=== PATIENT | female | born 1995 ===

== ENCOUNTER 2020-05-13 15:18 | Emergency (ER) | payer OTHER, SELFPAY ==
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
[2020-05-13 15:38] VITALS: BP 115/70; PULSE 93; RESP 16; TEMP 36.9; O2SAT 98; BMI 27.4
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
== END 2020-05-13 17:40 | disposition home or self-care (01) ==
PROVIDERS: Emergency Provider Emergency Medicine; PCP Internal Medicine
DX: S00.03XA Contusion of scalp, initial encounter (principal); S80.212A Abrasion, left knee, initial encounter; S60.511A Abrasion of right hand, initial encounter; V28.1XXA Motorcycle passenger injured in noncollision transport accident in nontraffic accident, initial encounter; Y93.9 Activity, unspecified; Y92.414 Local residential or business street as the place of occurrence of the external cause; Y99.9 Unspecified external cause status
CPT/HCPCS: 70450; 73110; 73560; 99283; 99284

== ENCOUNTER 2020-06-20 13:05 | Outpatient (REF) | payer OTHER, SELFPAY | END 2020-06-20 13:06 | disposition home or self-care (01) | LOC: HO.HMGCLDS 13:05 | PROVIDERS: PCP Internal Medicine; Visit Provider Internal Medicine | DX: Z20.828 Contact with and (suspected) exposure to other viral communicable diseases (principal) | CPT/HCPCS: C9803; U0003 ==

== ENCOUNTER 2021-07-16 12:24 | Emergency (ER) | payer OTHER, SELFPAY ==
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
--- NOTE | ~2021-07-16 | US_ITS ---
EXAMINATION: US PELVIS CLINICAL INFORMATION: Status post 07.13.2021 with abdominal pain. Question of retained products of conception. COMPARISON: 03/03/2016 TECHNIQUE: Ultrasound of the pelvis is performed using both transabdominal and transvaginal transducers along with Doppler. Spectral analysis performed. FINDINGS: Uterus: The uterus is anteverted and measures 8.8 x 3.8 x 5.8 cm. There is echogenic debris or eccentric thickening along the right fundal endometrium measuring up to 1.1 cm. Echogenic fluid likely blood present throughout the remainder of the endometrial canal as best shown on the cine images. The uterus is smooth in contour and has normal myometrial echogenicity. No visible fibroid. Adnexa: Both ovaries are visualized. There is normal color flow to the adnexa. There is no ovarian torsion. There is no pelvic ascites or fluid collection. Right ovary measures 3.8 x 1.9 x 1.4 cm. Left ovary measures 2.0 x 1.5 x 2.8 cm. US/US pelvic and transvaginal IMPRESSION: There is eccentric thickening or echogenic debris along the right fundal endometrium, and echogenic fluid throughout the remainder of the endometrial canal likely representing blood products. The former may represent a small amount of retained products of conception. Recommend short interval follow-up ultrasound in one week to document resolution.
[2021-07-16 14:40] VITALS: BP 126/82; PULSE 92; RESP 18; TEMP 36.6; O2SAT 100; BMI 28.3
--- NOTE | 2021-07-16 21:26 | ED.GENADULT ---
HPI - General Adult General Chief complaint: General Medical Stated complaint: ectopic ? Time Seen by Provider: 07/16/21 18:51 Source: patient Mode of arrival: ambulatory Limitations: no limitations History of Present Illness HPI narrative: patient is status post MTP for IUP done 3 days ago patient did not have much bleeding has cramping on the left lower pelvic area advised to go to the hospital for ultrasound to rule out any complication or ectopically as they did not see any fetus although hCG was positive patient denies any vaginal bleeding no nausea no vomiting no fever no Related Data Previous Rx's Medication Instructions Recorded albuterol sulfate 2.5 mg (3 mL) INHALATION Q4-6H PRN 03/27/21 30 Days #75 ml fluticasone propionate 45 2 puff INHALATION BID 30 Days #12 g 03/27/21 mcg-salmeterol 21 mcg/actuation HFA inhaler (Advair HFA) ketoconazole 2 % topical cream 1 appl TOPICAL DAILY 15 Days #30 g 03/27/21 Allergies Allergy/AdvReac Type Severity Reaction Status Date / Time No Known Allergies Allergy Verified 03/27/21 15:42 Review of Systems Review of Systems: Yes all other systems are reviewed and are negative PMF Past Medical History Medical History Asthma Surgical History History of tonsillectomy and adenoidectomy History of wisdom tooth extraction Family History Family History Mother High blood pressure Diabetes Thyroid condition Father No problems noted. Social History Social History Housing: House Alcohol intake: current Alcohol intake frequency: holidays/special occasions only Patient Tobacco Use Status: Never used Tobacco e-Cigarette/Vaping Use: Never Used Second Hand Smoke Exposure: No Advance Directives: No Advance Directives Information Provided: No Patient : No service: No Current occupational status: employed Current occupation: [employer] Physical Exam Vital Signs: Vital Signs: Last Vital Signs Temp 97.8 F 07/16/21 14:40 Pulse 92 07/16/21 14:40 Resp 18 07/16/21 14:40 BP 126/82 07/16/21 14:40 Pulse Ox 100 07/16/21 14:40 BMI result Body Mass Index 28.3 Appearance: Alert. Oriented X3. No acute distress. ENT: Pharynx normal. Oral Mucosa moist CVS: Normal heart rate and rhythm. Pulses normal. Respiratory: No respiratory distress. Equal air entry bilateral Abdomen: Soft, mild tenderness suprapubic and left lower abdomen no rebound tenderness or guarding Bowel sounds are present, no mass palpable, no CVA tenderness Skin: Skin warm and dry. Normal skin color. Normal skin turgor. Extremities: No lower extremity edema. No calf tenderness Neuro: Oriented X 3. Medical Decision Making MDM Narrative Medical decision making narrative: patient ultrasound negative for any fluid collection and adnexal area or pelvis showed product of blood products in the uterus quantitative hCG was done patient advised to follow with tdp displays analyst Lab Data Lab results reviewed: Yes I reviewed the patient's lab results. Labs: Lab Results 07/16/21 Range/Units 21:37 Beta HCG, Quant 84 mIU/mL Discharge Plan Discharge Clinical Impression: in first trimester Patient Disposition: Home, Self-Care Instructions: Miscarriage (ED) Additional Instructions: Check the level of HCG and follow-up with tdp displays analyst as advised Prescriptions: No Action albuterol sulfate 2.5 mg /3 mL (0.083 %) solution for nebulization 2.5 mg inhalation Q4-6H PRN (Reason: shortness of breath or wheezing) 30 Days Qty: 75 RF: 0 Advair HFA 45-21 mcg/actuation HFA aerosol inhaler 2 puff inhalation BID 30 Days Qty: 12 RF: 0 ketoconazole 2 % cream 1 appl topical DAILY 15 Days Qty: 30 RF: 0 Referrals: Vishnu Yost MD [Physician] - 2 days Stand Alone Forms: Work/School Release Interventions: ED Discharge Assessment Last Done: 07/16/21 21:53 Discharge Date/Time: 07/16/21 21:53
[2021-07-16 22:04] LABS: HCG Quantitative 84 mIU/mL
== END 2021-07-16 21:53 | disposition home or self-care (01) ==
PROVIDERS: Emergency Provider Internal Medicine; PCP Internal Medicine
DX: O03.9 Complete or unspecified spontaneous abortion without complication (principal)
CPT/HCPCS: 36415; 76830; 76856; 84702; 93975; 99282; 99284

== ENCOUNTER 2021-08-16 08:55 | Outpatient (REF) | payer OTHER, SELFPAY ==
[2021-08-16 09:31] LABS: Hematocrit 40.1 % (37.0-47.0); Hemoglobin 13.4 g/dl (12.0-16.0); Mean Corpuscular HGB Conc 33.4 g/dl (31.0-35.0); Mean Corpuscular Volume 83.7 fL (80.0-98.0); Mean Platelet Volume 10.1 fL (9.4-12.3); Platelet Count 160 X10*3/uL (160-400); Red Blood Count 4.79 X10*6/uL (4.20-5.50); Red Cell Distribution Width 12.6 % (11.0-16.0); White Blood Count 7.6 X10*3/uL (4.8-10.8)
[2021-08-16 09:50] LABS: Estimated Average Glucose 105 mg/dL; Hemoglobin A1c % 5.3 %
[2021-08-16 09:52] LABS: Alanine Aminotransferase 18 U/L (0-31); Albumin Level 4.3 g/dL (3.5-5.0); Alkaline Phosphatase 61 U/L (39-117); Anion Gap 12 (12-20); Aspartate Amino Transferase 17 U/L (5-31); Bilirubin Total 0.7 mg/dL (0.0-1.0); Blood Urea Nitrogen 13 mg/dL (9-16); Calcium 9.7 mg/dL (8.4-10.2); Carbon Dioxide 24 mmol/L (22-29); Chloride 106 mmol/L (96-108); Estimated Glomerular Filt Rate > 60; Glucose Fasting 108 mg/dL (60-99); Potassium 4.5 mmol/L (3.3-5.1); Sodium 137 mmol/L (135-145)
[2021-08-16 10:16] LABS: TSH reflex Free T4 2.59 uIU/mL (0.32-4.0)
== END 2021-08-16 08:56 | disposition home or self-care (01) ==
LOC: HO.LAB 08:55
PROVIDERS: PCP Physician Assistant; Visit Provider Physician Assistant
DX: Z13.29 Encounter for screening for other suspected endocrine disorder (principal); I10 Essential (primary) hypertension
CPT/HCPCS: 36415; 80053; 83036; 84443; 85027

== ENCOUNTER 2022-03-20 08:09 | Outpatient (REF) | payer OTHER, SELFPAY ==
[2022-03-20 08:43] LABS: Hemoglobin 12.8 g/dl (12.0-16.0); Mean Corpuscular HGB Conc 33.7 g/dl (31.0-35.0); Mean Corpuscular Hemoglobin 28.2 pg (27.0-33.0); Mean Corpuscular Volume 83.7 fL (80.0-98.0); Mean Platelet Volume 10.2 fL (9.4-12.3); Platelet Count 192 X10*3/uL (160-400); Red Blood Count 4.54 X10*6/uL (4.20-5.50); Red Cell Distribution Width 12.7 % (11.0-16.0); White Blood Count 9.9 X10*3/uL (4.8-10.8)
[2022-03-20 09:10] LABS: Iron 106 mcg/dL (30-160); Percent Iron Saturation 23 % (15-50); Total Iron Binding Capacity 469 mcg/dL (228-428); Unsaturated Iron Binding 363 ug/dL
[2022-03-20 09:31] LABS: Ferritin 36 ng/mL (10-122)
[2022-03-20 09:42] LABS: Folate 12.2 ng/mL (> or = 4.0); Vitamin B12 300 pg/mL (200-900)
== END 2022-03-20 08:10 | disposition home or self-care (01) ==
LOC: HO.LAB 08:09
PROVIDERS: PCP Physician Assistant; Visit Provider Physician Assistant
DX: E53.8 Deficiency of other specified B group vitamins (principal); D50.9 Iron deficiency anemia, unspecified
CPT/HCPCS: 36415; 82607; 82728; 82746; 83540; 85027

== ENCOUNTER 2022-04-16 08:58 | Outpatient (REF) | payer OTHER, SELFPAY ==
[2022-04-16 09:10] LABS: MANUAL DIFF FLAG NO
[2022-04-16 09:41] LABS: Basophils Percent Auto 0.7 % (0-2); Eosinophils Absolute Auto 0.1 X10*3/uL (0.0-0.4); Eosinophils Percent Auto 1.2 % (0-4); Hematocrit 37.4 % (37.0-47.0); Hemoglobin 12.6 g/dl (12.0-16.0); Imm Gran Abs Auto 0.05 X10*3/uL (0.00-0.03); Imm Gran Pct Auto 0.9 % (0.0-0.4); Lymphocytes Absolute Auto 1.9 X10*3/uL (1.2-4.9); Lymphocytes Percent Auto 32.8 % (20-40); Mean Corpuscular HGB Conc 33.7 g/dl (31.0-35.0); Mean Corpuscular Hemoglobin 28.3 pg (27.0-33.0); Mean Corpuscular Volume 83.9 fL (80.0-98.0); Monocytes Absolute Auto 0.5 X10*3/uL (0.1-1.2); Monocytes Percent Auto 8.7 % (2-11); Neutrophils Absolute Auto 3.2 x10*3/uL (2.0-8.3); Neutrophils Percent Auto 55.7 % (45-73); Red Blood Count 4.46 X10*6/uL (4.20-5.50); Red Cell Distribution Width 12.4 % (11.0-16.0); White Blood Count 5.8 X10*3/uL (4.8-10.8)
[2022-04-16 10:06] LABS: Mean Platelet Volume 10.6 fL (9.4-12.3)
[2022-04-16 10:07] LABS: Platelet Count 95 X10*3/uL (160-400)
== END 2022-04-16 08:59 | disposition home or self-care (01) ==
LOC: HO.LAB 08:58
PROVIDERS: PCP Physician Assistant; Visit Provider Physician Assistant Medical
DX: D69.2 Other nonthrombocytopenic purpura (principal)
CPT/HCPCS: 36415; 85025

== ENCOUNTER 2022-04-25 15:04 | Outpatient (REF) | payer OTHER, SELFPAY ==
[2022-04-25 15:44] LABS: C Reactive Protein 0.84 mg/dL (< or = 0.50)
[2022-04-25 16:14] LABS: Erythrocyte Sedimentation Rate 13 MM/HR (0-20)
[2022-04-27 19:07] LABS: Anti Nuclear Antibody Screen NEGATIVE (NEGATIVE)
== END 2022-04-25 15:05 | disposition home or self-care (01) ==
LOC: HO.LAB 15:04
PROVIDERS: PCP Physician Assistant; Visit Provider Nurse Practitioner Family
DX: R21 Rash and other nonspecific skin eruption (principal)
CPT/HCPCS: 36415; 85652; 86038; 86039; 86140

== ENCOUNTER 2022-12-10 10:14 | Emergency (ER) | payer OTHER, SELFPAY ==
[2022-12-10 10:30] VITALS: BP 135/81; PULSE 98; RESP 18; TEMP 36.5; O2SAT 100; BMI 30.2
--- NOTE | 2022-12-10 11:23 | PC.NURSE ---
initial contact with pt. pt with headache unrelieved by home remedies including ice, dark environments and rest. pt states she cannot take tylenol due to ITP, pt is and cannot take ibu. light dimmed, awaiting md [place].
[2022-12-10 11:46] VITALS: BP 114/78; PULSE 95; RESP 14; TEMP 37.2; O2SAT 100
[2022-12-10 11:58] LABS: Appearance Urine Clear; Color Urine Yellow; Glucose Urine UA Negative (Negative); Leukocyte Esterase Urine Large (3+) (Negative); Nitrite Urine Negative (Negative); PH 7.5 (5.0-9.0); UMIC TRIGGER UACC YES; Urine Blood Negative (Negative); Urine Ketones Negative (Negative); Urine Protein Negative (Neg-Trace)
[2022-12-10 11:59] LABS: UPreg QC Valid YES; Urine Pregnancy POSITIVE (NEGATIVE)
[2022-12-10 12:05] LABS: Bacteria Urine Trace (None Seen); Hyaline Casts Urine 0-2 /LPF (0-2); RBC Urine 0-2 /HPF (0-2); UACC Culture Trigger YES; WBC Urine 0-5 /HPF (0-5)
--- NOTE | 2022-12-10 12:30 | ED_ITS ---
HPI - Headache General Chief Complaint: Headache Stated Complaint: Headache Pain R Side of Face Time Seen by Provider: 12/10/22 11:08 Source: patient and family (Mother) Mode of arrival: ambulatory History of Present Illness HPI Narrative: 27-year-old female who presents with right-sided headache and sinus pressure, she is currently , she denies any double vision/blurry vision or changes in hearing. Patient does have a history of ITP is currently being followed at [facility] hematology with last lab work June 2022. She denies any shortness of breath or either lower calf swelling. Related Data Home Medications Medication Instructions Recorded Confirmed norelgestromin 150 mcg-e.estradiol 1 patch topical QWEEK 04/24/22 05/21/22 35 mcg/24 hr weekly transderm patch (Xulane) Previous Rx's Medication Instructions Recorded albuterol sulfate 2.5 mg/3 mL 2.5 mg (3 mL) inhalation Q4-6H PRN 03/27/21 (0.083 %) solution for nebulization shortness of breath or wheezing 30 days #75 mL fluticasone propionate 45 2 puff inhalation BID 30 days #12 02/26/22 mcg-salmeterol 21 mcg/actuation grams HFA inhaler (Advair HFA) albuterol sulfate 90 mcg/actuation 1 inh inhalation QID PRN shortness 05/21/22 aerosol inhaler (Ventolin HFA) of breath or wheezing 30 days #8.5 grams amoxicillin 500 mg capsule 500 mg PO BID 5 days #10 caps 12/09/22 nitrofurantoin 100 mg PO Q12H 7 days #14 caps 12/10/22 monohydrate/macrocrystals 100 mg capsule (Macrobid) Allergies Allergy/AdvReac Type Severity Reaction Status Date / Time No Known Allergies Allergy Verified 12/10/22 09:08 Review of Systems Review of Systems: Pertinent positives and negatives as stated in HPI PMFSH Past Medical History Source: nursing notes reviewed Medical History Asthma Ganglion of left wrist (~2007) Surgical History History of tonsillectomy and adenoidectomy History of wisdom tooth extraction Family History Family History Mother High blood pressure Diabetes Thyroid condition COPD (chronic obstructive pulmonary disease) Father High blood pressure Social History Social History Household Members: Family Housing: House Alcohol intake: never Patient Tobacco Use Status: Never used Tobacco Smoked in Last 30 Days: No e-Cigarette/Vaping Use: Never Used Second Hand Smoke Exposure: No Use of substances other than those prescribed or required for medical reasons: No Advance Directives: No Advance Directives Information Provided: No Patient : Yes service: No Current occupational status: employed 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 GENERAL: Well developed, well nourished, in no acute distress. HEAD: Normocephalic/atraumatic EYES: PERRLA, EOMI EARS: Ext canals without abnormality LUNGS: Normal breath sounds. No adventitious sounds or accessory muscle use. SpO2<100> CARDIOVASCULAR: Regular rate and rhythm without noted murmurs ABDOMEN: Soft, non-tender, non-distended with bowel sounds. MUSCULOSKELETAL: No tenderness, deformities, or effusions noted on gross inspection. EXTREMITIES: No cyanosis, clubbing or edema. SKIN: Inspection of the skin reveals no rashes NEUROLOGIC: Alert and oriented x 4. Strength and sensation to light touch were grossly intact x 4. Medications Administered Discontinued Medications Generic Name Dose Route Start Last Admin Trade Name Freq PRN Reason Stop Dose Admin Acetaminophen 975 mg 12/10/22 12:30 12/10/22 13:07 Acetaminophen 325 Mg Tablet PO 12/10/22 12:31 975 mg ONCE ONE Administration Nitrofurantoin Macrocrystals 100 mg 12/10/22 13:59 12/10/22 14:22 Nitrofurantoin Monohyd/M-Cryst 100 Mg Capsule PO 12/10/22 14:00 100 mg ONCE ONE Administration Medical Decision Making Medical Decision Making [facility] Narrative: 27-year-old female who appears well, no petechial or purpura rashes noted, will provide 975 mg of Tylenol as well as obtain basic lab work, I have no concerns for a TTP presentation and I do not suspect any coagulopathy at this time. I reviewed all investigations and my interpretation is that patient has a UTI, platelets were noted to be 179, patient will receive empiric antibiotics for the UTI. Patient is already on amoxicillin for her sinusitis which she was encouraged to continue but also informed that she will receive Macrobid for her UTI. On re-evaluation patient reports that her headache has improved. Differential Diagnosis Please see the discussion above Lab Data Please see the discussion above 12/10/22 13:36 12/10/22 13:36 Labs: Lab Results 12/10/22 12/10/22 12/10/22 Range/Units 11:51 11:51 13:36 WBC 12.6 H (4.8-10.8) X10*3/uL RBC 4.04 L (4.20-5.50) X10*6/uL Hgb 11.9 L (12.0-16.0) g/dl Hct 33.5 L (37.0-47.0) % MCV 82.9 (80.0-98.0) fL MCH 29.5 (27.0-33.0) pg MCHC 35.5 H (31.0-35.0) g/dl RDW 13.5 (11.0-16.0) % Plt Count 179 D (160-400) X10*3/uL MPV 9.9 (9.4-12.3) fL Absolute Nucleated RBC 0.000 (0.0-0.012) X10*3/uL Nucleated RBC % (auto) 0.0 (0.0-0.2) /100WBC Sodium (135-145) mmol/L Potassium (3.3-5.1) mmol/L Chloride (96-108) mmol/L Carbon Dioxide (22-29) mmol/L Anion Gap (12-20) BUN (9-16) mg/dL Creatinine (0.5-1.4) mg/dL Estim Creat Clear Calc Estimated GFR Random Glucose (60-115) mg/dL Calcium (8.4-10.2) mg/dL Urine Color Yellow Urine Appearance Clear Urine pH 7.5 (5.0-9.0) Ur Specific [place] 1.020 (1.005-1.025) Urine Protein Negative (Neg-Trace) mg/dL Urine Glucose (UA) Negative (Negative) mg/dL Urine Ketones Negative (Negative) mg/dL Urine Blood Negative (Negative) Urine Nitrite Negative (Negative) Ur Leukocyte Esterase Large (3+) H (Negative) Urine RBC 0-2 (0-2) /HPF Urine WBC 0-5 (0-5) /HPF Ur Squamous Epith Cells 6-10 (0-2) /HPF Urine Bacteria Trace (None Seen) Hyaline Casts 0-2 (0-2) /LPF Urine Test POSITIVE H (NEGATIVE) 12/10/22 Range/Units 13:36 WBC (4.8-10.8) X10*3/uL RBC (4.20-5.50) X10*6/uL Hgb (12.0-16.0) g/dl Hct (37.0-47.0) % MCV (80.0-98.0) fL MCH (27.0-33.0) pg MCHC (31.0-35.0) g/dl RDW (11.0-16.0) % Plt Count (160-400) X10*3/uL MPV (9.4-12.3) fL Absolute Nucleated RBC (0.0-0.012) X10*3/uL Nucleated RBC % (auto) (0.0-0.2) /100WBC Sodium 136 (135-145) mmol/L Potassium 4.4 (3.3-5.1) mmol/L Chloride 105 (96-108) mmol/L Carbon Dioxide 21 L (22-29) mmol/L Anion Gap 14 (12-20) BUN 8 L (9-16) mg/dL Creatinine 0.62 (0.5-1.4) mg/dL Estim Creat Clear Calc 130.2 Estimated GFR > 60 Random Glucose 107 (60-115) mg/dL Calcium 9.1 D (8.4-10.2) mg/dL Urine Color Urine Appearance Urine pH (5.0-9.0) Ur Specific [place] (1.005-1.025) Urine Protein (Neg-Trace) mg/dL Urine Glucose (UA) (Negative) mg/dL Urine Ketones (Negative) mg/dL Urine Blood (Negative) Urine Nitrite (Negative) Ur Leukocyte Esterase (Negative) Urine RBC (0-2) /HPF Urine WBC (0-5) /HPF Ur Squamous Epith Cells (0-2) /HPF Urine Bacteria (None Seen) Hyaline Casts (0-2) /LPF Urine Test (NEGATIVE) External Record Review External record reviewed: Prior outpatient labs Discharge Plan Discharge Clinical Impression: Headache, Urinary tract infection during Patient Disposition: Home, Self-Care Instructions: Urinary Tract Infection in (ED), General Headache (ED) Additional Instructions: 1. Complete the entire course of antibiotics as ordered. Continue to take your vitamins as well as antibiotics that you were prescribed by your primary care provider. 2. Tylenol 1000 mg, orally, every 6 hours as needed for pain control. Do not exceed 4000 mg within 24 hours. 3. Please follow-up with your primary care provider and industrial machinery mechanic in the next 1-2 days for re-evaluation further outpatient management. Return to the ER for any worsening or new symptoms. Prescriptions: New nitrofurantoin monohyd/m-cryst [Macrobid] 100 mg capsule 100 mg PO Q12H 7 Days Qty: 14 0RF Rx Instructions: must administer with a meal/food No Action amoxicillin 500 mg capsule 500 mg PO BID 5 Days Qty: 10 0RF Xulane 150-35 mcg/24 hr patch weekly 1 patch topical QWEEK albuterol sulfate 2.5 mg /3 mL (0.083 %) solution for nebulization 2.5 mg inhalation Q4-6H PRN (Reason: shortness of breath or wheezing) 30 Days Qty: 75 0RF Advair HFA 45-21 mcg/actuation HFA aerosol inhaler 2 puff inhalation BID 30 Days Qty: 12 0RF albuterol sulfate [Ventolin HFA] 90 mcg/actuation HFA aerosol inhaler 1 inh inhalation QID PRN (Reason: shortness of breath or wheezing) 30 Days Qty: 8.5 3RF Referrals: Lucio Reyes PA-C [Primary Care Provider] -
[2022-12-10] MEDS: Acetaminophen 325 MG TABLET 975 MG PO (13:07)
[2022-12-10 13:42] LABS: Hematocrit 33.5 % (37.0-47.0); Hemoglobin 11.9 g/dl (12.0-16.0); Mean Corpuscular HGB Conc 35.5 g/dl (31.0-35.0); Mean Corpuscular Hemoglobin 29.5 pg (27.0-33.0); Mean Corpuscular Volume 82.9 fL (80.0-98.0); Mean Platelet Volume 9.9 fL (9.4-12.3); Platelet Count 179 X10*3/uL (160-400); Red Blood Count 4.04 X10*6/uL (4.20-5.50); Red Cell Distribution Width 13.5 % (11.0-16.0); White Blood Count 12.6 X10*3/uL (4.8-10.8)
[2022-12-10 13:57] LABS: Anion Gap 14 (12-20); Blood Urea Nitrogen 8 mg/dL (9-16); Calcium 9.1 mg/dL (8.4-10.2); Carbon Dioxide 21 mmol/L (22-29); Chloride 105 mmol/L (96-108); Creatinine Clr Calc Pharmacy 130.2; Estimated Glomerular Filt Rate > 60; Glucose Random 107 mg/dL (60-115); Potassium 4.4 mmol/L (3.3-5.1); Sodium 136 mmol/L (135-145)
[2022-12-10] MEDS: Nitrofurantoin Monohyd/M-Cryst 100 MG CAPSULE PO (14:22)
[2022-12-10 14:32] VITALS: BP 118/71; PULSE 95; RESP 14; TEMP 36.6; O2SAT 100
== END 2022-12-10 15:31 | disposition home or self-care (01) ==
PROVIDERS: Emergency Provider Student in an Organized Health Care Education/Training Program; PCP Physician Assistant
DX: O23.40 Unspecified infection of urinary tract in pregnancy, unspecified trimester (principal); N39.0 Urinary tract infection, site not specified; O26.899 Other specified pregnancy related conditions, unspecified trimester; R51.9 Headache, unspecified; Z3A.00 Weeks of gestation of pregnancy not specified
CPT/HCPCS: 36415; 80048; 81001; 81025; 85027; 87086; 99283; 99284

== ENCOUNTER 2023-05-28 13:16 | Outpatient (AMB) | payer OTHER, SELFPAY ==
[2023-05-28 13:41] VITALS: BP 102/60; PULSE 100; RESP 15; O2SAT 98; BMI 34.3
--- NOTE | 2023-05-28 13:41 | A.OFFPC_ITS ---
Vital Signs 05/28/23 13:41 Height 5 ft 2 in Weight 187 lb 8 oz BMI 34.3 BP 102/60 Blood Pressure Location Lt brachial Position Sitting Respiration 15 Pulse 100 Pulse Source Pulse Oximeter Pulse Oximetry (%) 98 Oxygen Delivery Method Room Air Intake Visit Reasons: Annual Exam Intake Note: Patient is here today for a physical. 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: No Accompanied by: Self / Same As Patient Allergies No Known Allergies Allergy (Verified 05/28/23 14:00) Medication List - Last Reconciled 05/28/23 by Lucio Reyse PA-C albuterol sulfate 90 mcg/actuation (Ventolin HFA) 1 inh inhalation QID PRN 30 days fluticasone propion-salmeterol 45-21 mcg/actuation (Advair HFA) 2 puffs inhalation BID 30 days PNV 119-iron fum-folic acid 29 mg iron- 1 mg (Se-Reginaldo-19) 1 tab PO DAILY Tobacco use date assessed: 05/28/23 Dental Screening Dental Screen Date: 05/28/23 Did you have a dental visit in the last 12 months?: Yes Did you have a dental problem in the last 6 months where you did not have access to dental care?: No Was dental information given to patient?: Patient has dentist HPI Annual Exam HPI Details Patient is a 27 year-old female here today for an annual physical.? Patient has a past medical history significant for asthma, anxiety and thrombocytopenia. Patient is currently and due June 25. 2022 .. Thrombocytopenia: Is followed by Hematology. Most recent platelet count of 179 . . Asthma: report only using her inhaler during?Hot and humid weather.? Otherwise denies any nighttime awakenings with asthma symptoms. 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 De Souza.-being followed by [facility] Vaccines: COVID is up-to-date, tetanus up-to-date, up-to-date with Flu vaccine. Laboratory Tests 08/16/21 03/20/22 03/20/22 09:12 08:20 08:20 Hgb Plt Count 160 192 ESR Creatinine Fasting Glucose 108 H Hemoglobin A1c % 5.3 Iron 106 04/16/22 04/25/22 12/10/22 09:08 15:12 13:36 Hgb 11.9 L Plt Count 95 L D 179 D ESR 13 Creatinine 0.62 Fasting Glucose Hemoglobin A1c % Iron [facility] Medical History (Updated 05/28/23 @ 14:14 by Lucio Reyes PA-C) Purpura Ganglion of left wrist (~2007) Asthma Surgical History History of wisdom tooth extraction History of tonsillectomy and adenoidectomy Family History Mother High blood pressure Diabetes Thyroid condition COPD (chronic obstructive pulmonary disease) Father High blood pressure Social History (Updated 05/28/23 @ 14:05 by Lucio Reyes PA-C) Household Members: Family Housing: House Alcohol intake: never Patient Tobacco Use Status: Never used Tobacco e-Cigarette/Vaping Use: Never Used Second Hand Smoke Exposure: No service: No Current occupational status: employed 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 1. Little interest or pleasure in doing things: not at all 2. Feeling down, depressed, or hopeless: not at all 3. Trouble falling or staying asleep, or sleeping too much: not at all 4. Feeling tired or having little energy: not at all 5. Poor appetite or overeating: not at all 6. Feeling bad about yourself - or that you are a failure or have let yourself or your family down: not at all 7. Trouble concentrating on things, such as reading the newspaper or watching television: not at all 8. Moving or speaking so slowly that other people could have noticed. Or the opposite - being so fidgety or restless that you have been moving around a lot more than usual: not at all 9. Thoughts that you would be better off or of hurting yourself in some way: not at all Total score: 0 Depression Screening Interpretation: Negative Depression Screening Done: Yes 90373 - PHQ-9 Billing: Yes Source: Developed by Drs. Sumeet Adair, Nayla Leon, Remy Hannah and colleagues, with an educational heidi from [employer]. Thrive Questionnaire Date Thrive assessed: 05/28/23 I am a: Patient What is your living situation today?: I have a steady place to live Within the past 12 months, did the food you bought not last and you didn't have the money to get more?: Never true Within the past 12 months, did you worry whether your food would run out before you got money to buy more?: Never true Do you have trouble paying for medicines?: No Do you have trouble getting transportation to medical appointments?: No Do you have trouble paying your heating and electricity bill?: No Do you have trouble taking care of your child, family member or friend?: No Do you have trouble with day-to-day activities such as bathing, preparing meals, shopping, managing finances, etc.?: No Are you currently unemployed and looking for a job?: No Are you interested in more education?: No Please select the resources that you would like help with: None Currently or been in a relationship where the following occur: no concerns reported AUDIT C Alcohol Use Questionnaire (AUDIT-C) 1. How often do you have a drink containing alcohol?: Never 3. How often do you have six or more drinks on one occasion?: Never Total Score: 0 TIFFANIE-7 AMB Questionnaire TIFFANIE-7 Date TIFFANIE - 7 assessed: 05/28/23 Feeling nervous, anxious, or on edge: 0 = Not at all Not being able to stop or control worryin = Not at all Worrying too much about different things: 0 = Not at all Trouble relaxin = Not at all Being so restless that it is hard to sit still: 0 = Not at all Becoming easily annoyed or irritable: 0 = Not at all Feeling afraid as if something awful might happen: 0 = Not at all Total TIFFANIE-7 score (0-4 normal; 5-9 mild; 10-14 moderate; 15-21 severe): 0 Source: Developed by Drs. Sumeet Adair, Nayla Leon, Remy Hannah and colleagues, with an educational heidi from [employer]. TIFFANIE-7 Assessment Billing TIFFANIE-7 Assessment Tool: TIFFANIE-7 Assessment 16938 ACT Questionnaire In the past 4 weeks, how much of the time did your asthma keep you from getting as much done at work, school or at home?: None of the time During the past 4 weeks, how often have you had shortness of breath?: Not at all During the past 4 weeks, how often did your asthma symptoms wake you up at night or earlier than usual in the morning?: Not at all During the past 4 weeks, how often have you had to use your rescue inhaler or nebulizer medication?: Not at all How would you rate your asthma control during the past 4 weeks?: Completely controlled ACT Interpretation: Negative Score: 25 Review of Systems Const Denies headache(s) Eyes Denies loss of vision ENT Denies vertigo, Denies dizziness, Denies headache(s) and Denies sore throat Card Denies chest pain, Denies leg edema and Denies lightheadedness Resp Denies cough, Denies hemoptysis and Denies wheezing GI Denies abdominal pain, Denies melena, Denies constipation, Denies diarrhea and Denies vomiting Denies urinary frequency, Denies dysuria and Denies urinary urgency Musc Denies arthralgias, Denies joint swelling, Denies numbness and Denies tingling Neuro Denies Abnormal speech present, Denies behavioral changes, Denies vertigo, Denies dizziness, Denies headache(s), Denies loss of vision, Denies memory loss, Denies numbness and Denies tingling Psych Denies anxiety, Denies behavioral changes, Denies depression, Denies memory loss and Denies panic attacks Pollo/Lymph Denies easy bleeding and Denies easy bruising Aller/Immun Denies wheezing Physical exam (Primary Care) Vital Signs: Last Vital Signs Pulse 100 05/28/23 13:41 Resp 15 05/28/23 13:41 BP 102/60 05/28/23 13:41 Pulse Ox 98 05/28/23 13:41 Oxygen Delivery Method Room Air 05/28/23 13:41 BMI result Body Mass Index 34.3 Tobacco/Smoking Status: Tobacco use Status Tobacco use date assessed 05/28/23 05/28/23 13:54 Patient Tobacco Use Status Never used Tobacco 05/28/23 13:42 e-Cigarette/Vaping Use Never Used 05/28/23 13:42 PHQ-9: PHQ-9 Score PHQ-9: Total score 0 05/28/23 13:47 Depression Screening Interpretation: Negative Thrive Assessment: Date of Thrive Assessment Date Thrive assessed 05/28/23 05/28/23 13:54 Currently or been in a relationship where the following occur: no concerns reported Const General: healthy appearing, no acute distress, alert and awake Nutritional Appearance: well nourished Orientation/consciousness: oriented to person, oriented to place and oriented to time HENMT Ears: TM's normal bilaterally General nose exam: Normal nasal mucous membranes and turbinates present Eyes Conjunctivae: conjunctivae normal Sclerae: sclerae normal Pupils: Equal, round and reactive pupils present Neck Neck: Yes no lymphadenopathy and Yes no JVD Thyroid: Thyroid normal Carotids: no bruits Resp Effort & Inspection: normal respiratory effort and not tachypneic Auscultation: no crackles, no rales, no rhonchi and no wheezes Cardio Rate: regular rate Rhythm: regular rhythm Heart sounds: no murmurs and normal S1 and S2 GI Palpation (GI): Soft to palpation, nontender, no hepatomegaly and no splenomegaly Auscultation: normal bowel sounds Skin General skin exam: no rashes or lesions noted and dry skin Neuro General: oriented to person, oriented to place and oriented to time Cranial nerves: Yes Equal, round and reactive pupils present Speech: No Abnormal speech present Gait exam (Neuro): Normal gait present Motor exam (neuro): no tremor noted Extrem Right upper extremity: full ROM Left upper extremity: full ROM Right lower extremity: full ROM; no edema Left lower extremity: full ROM; no edema Psych Mental Status: mental status grossly normal Speech and movement: Normal speech and movement present Affect: normal affect Attitude: cooperative Thought process: Normal thought process present Office Procedures Flu Questionnaire Does the patient have a severe egg allergy?: No Does the patient have severe life threatening allergies?: No Does the patient have a fever or illness today?: No Has the patient ever had Guillain-[place] Syndrome?: No Has the patient ever had any past reaction to a flu shot?: No Immunizations flu vacc [id number] 6mos up(PF) 60 mcg(15 mcgx4)/0.5 mL IM syringe Performing Provider: Lucio Reyes PA-C Performing Location: [facility] Administered by: FLORENCIO Willis on 05/28/23 13:54 Dose Route Admin Location Dispensed Lot Number Expiration Date NDC Pharmacy Resource Tech 0.5 mL IM Left Deltoid 0.5 mL [id number] 01/25/24 10985-727-91 [place] VIS Given Date VIS Provided VIS Publication Date 05/28/23 Single Vaccine 21 Eligibility Eligibility Date Funding Source Not [facility] Eligible 05/28/23 Private Assessment and Plan Assessment & Plan (1) Annual physical exam: Code(s): Z00.00 - Encounter for general adult medical examination without abnormal findings (2) Thrombocytopenia: Code(s): D69.6 - Thrombocytopenia, unspecified Plan: Most recent platelet count at 1 7. Has not noted any bruising bleeding. Currently Now followed by Hematology at [facility] . (3) Asthma: Code(s): J45.909 - Unspecified asthma, uncomplicated Qualifiers: Asthma severity: severe Asthma persistence: unspecified Asthma complication type: with acute exacerbation Qualified Code(s): J45.901 - Unspecified asthma with (acute) exacerbation Plan: Patient's asthma has been well controlled with only p.r.n. use of her albuterol inhaler. She does use her maintenance inhaler on a daily basis. She denies any nighttime awakenings with asthma symptoms or recent exacerbations. (4) : Code(s): Z34.90 - Encounter for supervision of normal , unspecified, unspecified trimester Qualifiers: Weeks of gestation: 34 weeks Qualified Code(s): Z3A.34 - 34 weeks gestation of Plan: Currently and due June 25. has been uneventful (5) Anxiety: Code(s): F41.9 - Anxiety disorder, unspecified Plan: She reports her anxiety has been fairly stable. She does report being somewhat aranda though attributes this to her Orders: Orders Influenza [id number] Immunization Today Z23 - Encounter for immunization Complete Blood Count no Diff 11 Months D69.6 - Thrombocytopenia, unspecified Comprehensive [place]. Panel Fast 11 Months Z13.1 - Encounter for screening for diabetes mellitus Coding Level of Care Code Est Pt Prev Care 18-39y(00123) Diagnoses Annual physical exam Z00.00 Thrombocytopenia D69.6 Severe asthma with acute exacerbation, unspecified whether persistent J45.901 Asthma severity: severe Asthma persistence: unspecified Asthma complication type: with acute exacerbation 34 weeks gestation of Z3A.34 Weeks of gestation: 34 weeks Anxiety F41.9 Additional Codes TIFFANIE-7 Assessment Billing - TIFFANIE-7 Assessment Tool: TIFFANIE-7 Assessment 16089 ([id number])
== END 2023-05-28 14:14 | disposition home or self-care (01) ==
PROVIDERS: Visit Provider Physician Assistant
DX: Z00.00 Encounter for general adult medical examination without abnormal findings (principal); D69.6 Thrombocytopenia, unspecified; J45.901 Unspecified asthma with (acute) exacerbation; F41.9 Anxiety disorder, unspecified; Z23 Encounter for immunization
CPT/HCPCS: 90471; 90686; 99395

== ENCOUNTER 2023-11-11 15:06 | Outpatient (AMB) | payer OTHER, SELFPAY ==
--- NOTE | 2023-11-11 15:07 | MHC.PC.OV ---
Intake Visit Reasons: fever, headache, sore throat Intake Note: pt states she has had a fever, headache, sore throat X1 week with no relief. Silk Examiner Required: No Allergies No Known Allergies Allergy (Verified 11/11/23 15:19) Medication List - Last Reconciled 11/11/23 by Lucio Reyes PA-C albuterol sulfate 90 mcg/actuation (Ventolin HFA) 1 inh inhalation QID PRN 30 days fluticasone propion-salmeterol 45-21 mcg/actuation (Advair HFA) 2 puffs inhalation BID 30 days PNV 119-iron fum-folic acid 29 mg iron- 1 mg (Se--19) 1 tab PO DAILY Tobacco use date assessed: 11/11/23 Dental Screening Dental Screen Date: 11/11/23 HPI fever, headache, sore throat HPI Details Patient is a 28 year female being evaluated today via telephone only. Patient's past medical history significant for asthma and thrombocytopenia. She reports over last week having a sore throat, headache and fever. She reports doing home COVID antigen test which was negative. She does admit to positive sick contacts at home, and was told the sick contact had a viral illness. Of note patient currently is breast-feeding a 4-month-old infant. [facility], [facility] Medical History Purpura Ganglion of left wrist (~2007) Asthma Surgical History History of wisdom tooth extraction History of tonsillectomy and adenoidectomy Family History Mother High blood pressure Diabetes Thyroid condition COPD (chronic obstructive pulmonary disease) Father High blood pressure Social History Household Members: Family Housing: House Alcohol intake: never Patient Tobacco Use Status: Never used Tobacco e-Cigarette/Vaping Use: Never Used Second Hand Smoke Exposure: No service: No Current occupational status: employed 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 How often do you have a drink containing alcohol?: Never 3. How often do you have six or more drinks on one occasion?: Never Total Score: 0 TIFFANIE-7 AMB Questionnaire TIFFANIE-7 Date TIFFANIE - 7 assessed: 05/28/23 Source: Developed by Drs. Sumeet Adair, Nayla Leon, Remy Hannah and colleagues, with an educational heidi from [employer]. Review of Systems Const Reports chills, Reports fever(s), Reports headache(s) and Reports lethargy Eyes Denies loss of vision ENT Details: + sore throat Denies vertigo, Denies dizziness, Reports headache(s), Reports post nasal drip and Denies sore throat Card Denies chest pain, Denies leg edema and Denies lightheadedness Resp Denies cough, Denies hemoptysis and Denies wheezing GI Denies abdominal pain, Denies melena, Denies constipation, Denies diarrhea and Denies vomiting Denies urinary frequency, Denies dysuria and Denies urinary urgency Musc Denies arthralgias, Denies joint swelling, Denies numbness and Denies tingling Neuro Denies behavioral changes, Denies vertigo, Denies dizziness, Reports headache(s), Denies loss of vision, Denies memory loss, Denies numbness and Denies tingling Psych Denies anxiety, Denies behavioral changes, Denies depression, Denies memory loss and Denies panic attacks Pollo/Lymph Denies easy bleeding and Denies easy bruising Aller/Immun Denies wheezing Physical exam (Primary Care) Tobacco/Smoking Status: Tobacco use Status Tobacco use date assessed 11/11/23 11/11/23 15:08 Patient Tobacco Use Status Never used Tobacco 11/11/23 15:08 e-Cigarette/Vaping Use Never Used 11/11/23 15:08 Thrive Assessment: Date of Thrive Assessment Date Thrive assessed 05/28/23 11/11/23 15:08 Telehealth Telehealth Location of provider rendering services: practice address Location of patient: address on file Patient Identification confirmed using: Name, : Yes Telehealth method: voice only (iphone) Patient verbally consented to treatment: Yes Patient verbally consented to billing insurance company: Yes Patient informed of any privacy concerns related to visit: Yes Minutes spent on Phone/Video with Pt.: 11 Assessment and Plan Assessment & Plan (1) Pharyngitis: Code(s): J02.9 - Acute pharyngitis, unspecified Qualifiers: Pharyngitis/tonsillitis etiology: other specified organisms Qualified Code(s): J02.8 - Acute pharyngitis due to other specified organisms Plan: Patient signs symptoms most consistent with a pharyngitis, likely viral though will prophylactically treat for bacterial pharyngitis as she reports 2 days of fevers and difficulty swallowing. Medications: New amoxicillin 500 mg PO Q8H 5 days 15 tabs 0RF J02.8 - Acute pharyngitis due to other specified organisms Coding Level of Care Code Tele Est Pt Level 3 (58042) Diagnoses Pharyngitis due to other organism J02.8 Pharyngitis/tonsillitis etiology: other specified organisms
== END 2023-11-11 17:23 | disposition home or self-care (01) ==
LOC: HO.HMGH 15:07
PROVIDERS: PCP Physician Assistant; Visit Provider Physician Assistant
DX: J02.8 Acute pharyngitis due to other specified organisms (principal)
CPT/HCPCS: 99213

== ENCOUNTER 2023-12-02 08:48 | Outpatient (AMB) | payer OTHER, SELFPAY ==
[2023-12-02 09:24] VITALS: BP 118/78; PULSE 97; TEMP 36.7; O2SAT 97; BMI 30.7
--- NOTE | 2023-12-02 09:24 | MHC.OFFWIV ---
Intake Vital Signs 12/02/23 09:24 Height 5 ft 2 in Weight 168 lb BMI 30.7 BP 118/78 Blood Pressure Location Lt brachial Position Sitting Pulse 97 Pulse Source Pulse Oximeter Temp 98.0 F Temp Source Temporal Artery Scan Pulse Oximetry (%) 97 Oxygen Delivery Method Room Air Intake Visit Reasons: EP left eye is swollen Intake Note: pt is here today for lft eye is swollen started yesterday Patient Tobacco Use Status: Never used Tobacco Allergies No Known Allergies Allergy (Verified 12/02/23 09:32) Medication List - Last Reconciled 12/02/23 by Keysha Mendez MD albuterol sulfate 90 mcg/actuation (Ventolin HFA) 1 inh inhalation QID PRN 30 days fluticasone propion-salmeterol 45-21 mcg/actuation (Advair HFA) 2 puffs inhalation BID 30 days PNV 119-iron fum-folic acid 29 mg iron- 1 mg (Se-Reginaldo-19) 1 tab PO DAILY Do you need a note to return to daycare/school/sports/work: Yes HPI EP left eye is swollen HPI Details Woke up with a swollen left eye yesterday As day progressed continue to get worse Watering On examination she has developed conjunctivitis left eye I am treating her with Polytrim eyedrops On review system, there is no visual problems, there is no headache, no pain in the eye but feels irritated There is no nausea no vomiting no diarrhea PFSH Medical History Purpura Ganglion of left wrist (~2007) Asthma Surgical History History of wisdom tooth extraction History of tonsillectomy and adenoidectomy Family History Mother High blood pressure Diabetes Thyroid condition COPD (chronic obstructive pulmonary disease) Father High blood pressure Social History Household Members: Family Housing: House Alcohol intake: never Patient Tobacco Use Status: Never used Tobacco e-Cigarette/Vaping Use: Never Used Second Hand Smoke Exposure: No service: No Current occupational status: employed 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 Conjunctiva injected, pupils reactive to light eyelids inflamed upper and lower, cloudy discharge, no photophobia Resp Effort & Inspection: normal respiratory effort and able to speak in complete sentences Neuro General: patient oriented x3 Psych Mental Status: mental status grossly normal Assessment & Plan Assessment & Plan (1) Acute conjunctivitis, left eye: Code(s): H10.32 - Unspecified acute conjunctivitis, left eye Qualifiers: Acute conjunctivitis type: unspecified Qualified Code(s): H10.32 - Unspecified acute conjunctivitis, left eye Plan Woke up with a swollen left eye yesterday As day progressed continue to get worse Watering On examination she has developed conjunctivitis left eye I am treating her with Polytrim eyedrops On review system, there is no visual problems, there is no headache, no pain in the eye but feels irritated There is no nausea no vomiting no diarrhea Medications: New polymyxin B sulf-trimethoprim 10,000 unit- 1 mg/mL while awake; do not exceed 6 doses in 24 hours 1 drp ophthalmic (eye) .Q 4 H 7 days 10 mL 0RF Coding Level of Care Code Est Pt Level 3 (23127) Diagnoses Acute conjunctivitis of left eye, unspecified acute conjunctivitis type H10.32 Acute conjunctivitis type: unspecified
== END 2023-12-02 09:57 | disposition home or self-care (01) ==
PROVIDERS: PCP Physician Assistant; Visit Provider Internal Medicine
DX: H10.32 Unspecified acute conjunctivitis, left eye (principal)
CPT/HCPCS: 99213

== ENCOUNTER 2023-12-03 09:22 | Outpatient (AMB) | payer OTHER, SELFPAY ==
[2023-12-03 09:24] VITALS: BP 108/70; PULSE 91; O2SAT 98; BMI 30.7
--- NOTE | 2023-12-03 09:24 | AM.OFFWIN_ITS ---
Intake Vital Signs 12/03/23 09:24 Height 5 ft 2 in Weight 168 lb BMI 30.7 BP 108/70 Blood Pressure Location Rt brachial Position Sitting Pulse 91 Pulse Source Pulse Oximeter Pulse Oximetry (%) 98 Oxygen Delivery Method Room Air Intake Visit Reasons: EST/ patient allergic to eye drops(lobby) Intake Note: pt is here today for patient allergic to eye drops, states she was here yesterday for pink eye and was given drops which now her hands are itchy, face was a bit swollen and woke up with redness on other eye. Patient Tobacco Use Status: Never used Tobacco Allergies No Known Allergies Allergy (Verified 12/03/23 09:34) Medication List - Last Reconciled 12/03/23 by PERLA Trevizo albuterol sulfate 90 mcg/actuation (Ventolin HFA) 1 inh inhalation QID PRN 30 days erythromycin 1 appl ophthalmic (eye) TID fluticasone propion-salmeterol 45-21 mcg/actuation (Advair HFA) 2 puffs inhalation BID 30 days PNV 119-iron fum-folic acid 29 mg iron- 1 mg (Se-Reginaldo-19) 1 tab PO DAILY polymyxin B sulf-trimethoprim 10,000 unit- 1 mg/mL 1 drp ophthalmic (eye) .Q 4 H 7 days Do you need a note to return to daycare/school/sports/work: No HPI HPI Comments History of Present Illness Details 28-year-old female returns to urgent car e after having an allergic reaction to her eyedrops she was given yesterday. The patient was giving a polymyositis. She has no history of allergy to penicillin or any other antibiotics. She states her eyes were puffy inferior inferiorly and she felt scratchy throat. Denies shortness or breath or cough. There is no wheezing. 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 - [employer] Cognitive needs: No Hearing needs: No Vision needs: No Review of Systems Const All systems reviewed & are unremarkable except as noted in HPI and below Physical Exam Vital Signs: Last Vital Signs Pulse 91 12/03/23 09:24 BP 108/70 12/03/23 09:24 Pulse Ox 98 12/03/23 09:24 Oxygen Delivery Method Room Air 12/03/23 09:24 BMI result Body Mass Index 30.7 Const General: healthy appearing and no acute distress HEENT Head: Yes normal to inspection, Yes normocephalic and Yes atraumatic Ears: hearing grossly normal bilaterally General nose exam: Normal external nose present Eyes Periorbital: periorbital findings abnormal (Mild swelling) diffuse Eyelids: Yes eyelids normal Conjunctivae: conjunctival abnormal (Injected) diffuse Pupils: Equal, round and reactive pupils present EOM: EOMs intact bilaterally Resp Effort & Inspection: normal respiratory effort Auscultation: clear to auscultation bilaterally Cardio Rate: regular rate Rhythm: regular rhythm Neuro Cranial nerves: Yes Equal, round and reactive pupils present Assessment & Plan Assessment & Plan (1) Drug reaction: Code(s): T50.905A - Adverse effect of unspecified drugs, medicaments and biological substances, initial encounter Plan The patient will discontinue the polymycin and use erythromycin ophthalmic ointment. Follow up as needed Medications: New erythromycin 1 appl ophthalmic (eye) TID 3.5 grams 0RF Coding Level of Care Code Est Pt Level 3 (53968) Diagnoses Drug reaction T50.905A
== END 2023-12-03 09:43 | disposition home or self-care (01) ==
PROVIDERS: PCP Physician Assistant; Visit Provider Physician Assistant Medical
DX: T50.905A Adverse effect of unspecified drugs, medicaments and biological substances, initial encounter (principal); J02.9 Acute pharyngitis, unspecified
CPT/HCPCS: 99213

== ENCOUNTER 2024-02-20 10:19 | Outpatient (REF) | payer OTHER, SELFPAY ==
--- NOTE | ~2024-02-20 | XR_ITS ---
EXAMINATION: XR HIP, LEFT CLINICAL INFORMATION: Pain in the left hip COMPARISON: None available. TECHNIQUE: Two views of the left hip. FINDINGS: No fracture. Alignment is anatomic. Hip joint space is maintained. Soft tissues are unremarkable. XR/XR hip LT min 2V IMPRESSION: Normal left hip.
== END 2024-02-20 10:20 | disposition home or self-care (01) ==
LOC: HO.XRAY 10:19
PROVIDERS: PCP Physician Assistant; Visit Provider Physician Assistant
DX: M25.552 Pain in left hip (principal)
CPT/HCPCS: 73502

== ENCOUNTER 2024-04-20 07:00 | Outpatient (RCR) | payer OTHER, SELFPAY | END 2024-05-25 10:44 | disposition home or self-care (01) | LOC: HO.PT 07:00 | PROVIDERS: PCP Physician Assistant; Visit Provider Physician Assistant | DX: M25.552 Pain in left hip (principal) | CPT/HCPCS: 97110; 97161; 97535 ==

== ENCOUNTER 2024-06-01 15:57 | Outpatient (AMB) | payer OTHER, SELFPAY ==
[2024-06-01 16:10] VITALS: BP 110/74; PULSE 87; O2SAT 98; BMI 31.8
--- NOTE | 2024-06-01 16:10 | A.OFFPC_ITS ---
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 Accompanied by: Self / Same As Patient Allergies No Known Allergies Allergy (Verified 06/01/24 16:23) Medication List - Last Reconciled 06/01/24 by Lucio Reyes PA-C albuterol sulfate 90 mcg/actuation (Ventolin HFA) 1 inh inhalation QID PRN 30 days diclofenac sodium 25 mg PO BID 5 days erythromycin 1 appl ophthalmic (eye) TID PNV 119-iron fum-folic acid 29 mg iron- 1 mg (Se--19) 1 tab PO DAILY polymyxin B sulf-trimethoprim 10,000 unit- 1 mg/mL 1 drp ophthalmic (eye) .Q 4 H 7 days Tobacco use date assessed: 11/11/23 Dental Screening Dental Screen Date: 11/11/23 HPI annual exam HPI Details Patient is a 28 year-old female here today for an annual physical.? Patient has a past medical history significant for asthma, anxiety and thrombocytopenia. She is currently and does report feeling somewhat fatigued did daytime. 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 She is interested in starting supplemental vitamins to help her with her energy .. Thrombocytopenia: Is followed by Hematology. Most recent platelet count of 179. Will recheck CBC. . . Asthma: She reports overall her asthma has been well controlled with only p.r.n. use of her albuterol inhaler. She recently had an illness that caused her to have to use her albuterol inhaler much more often. Otherwise have not been using her Advair at all.? 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 Laboratory Tests 08/16/21 03/20/22 03/20/22 09:12 08:20 08:20 Hgb Plt Count 160 192 ESR Creatinine Fasting Glucose 108 H Hemoglobin A1c % 5.3 Iron 106 04/16/22 04/25/22 12/10/22 09:08 15:12 13:36 Hgb 11.9 L Plt Count 95 L D 179 D ESR 13 Creatinine 0.62 Fasting Glucose Hemoglobin A1c % Iron PFSH Medical History Purpura Ganglion of left wrist (~2007) Asthma Surgical History History of wisdom tooth extraction History of tonsillectomy and adenoidectomy Family History Mother High blood pressure Diabetes Thyroid condition COPD (chronic obstructive pulmonary disease) Father High blood pressure Social History (Updated 06/01/24 @ 16:26 by Lucio Reyes PA-C) Household Members: Family Housing: House Alcohol intake: never Patient Tobacco Use Status: Never used Tobacco e-Cigarette/Vaping Use: Never Used Second Hand Smoke Exposure: No service: No Current occupational status: employed 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 1. Little interest or pleasure in doing things: several days 2. Feeling down, depressed, or hopeless: several days 3. Trouble falling or staying asleep, or sleeping too much: several days 4. Feeling tired or having little energy: nearly every day 5. Poor appetite or overeating: not at all 6. Feeling bad about yourself - or that you are a failure or have let yourself or your family down: not at all 7. Trouble concentrating on things, such as reading the newspaper or watching television: not at all 8. Moving or speaking so slowly that other people could have noticed. Or the opposite - being so fidgety or restless that you have been moving around a lot more than usual: not at all 9. Thoughts that you would be better off or of hurting yourself in some way: not at all Total score: 6 Depression Screening Interpretation: Positive Depression Screening Follow-up: Existing condition Depression Screening Done: Yes 61950 - PHQ-9 Billing: Yes Source: Developed by Drs. Sumeet Adair, Nayla Leon, Remy Hannah and colleagues, with an educational heidi from [employer]. Thrive Questionnaire Date Thrive assessed: 06/01/24 I am a: Patient What is your living situation today?: I have a steady place to live Within the past 12 months, did the food you bought not last and you didn't have the money to get more?: Never true Within the past 12 months, did you worry whether your food would run out before you got money to buy more?: Never true Do you have trouble paying for medicines?: No Do you have trouble getting transportation to medical appointments?: No Do you have trouble paying your heating and electricity bill?: No Do you have trouble taking care of your child, family member or friend?: No Do you have trouble with day-to-day activities such as bathing, preparing meals, shopping, managing finances, etc.?: No Are you currently unemployed and looking for a job?: No Are you interested in more education?: Yes Please select the resources that you would like help with: None Currently or been in a relationship where the following occur: No concerns reported THRIVE Score: 0 AUDIT C Alcohol Use Questionnaire (AUDIT-C) 1. How often do you have a drink containing alcohol?: Never 3. How often do you have six or more drinks on one occasion?: Never Total Score: 0 TIFFANIE-7 AMB Questionnaire TIFFANIE-7 Date TIFFANIE - 7 assessed: 06/01/24 Feeling nervous, anxious, or on edge: 1 = Several days Not being able to stop or control worryin = Not at all Worrying too much about different things: 1 = Several days Trouble relaxin = Several days Being so restless that it is hard to sit still: 0 = Not at all Becoming easily annoyed or irritable: 1 = Several days Feeling afraid as if something awful might happen: 0 = Not at all Total TIFFANIE-7 score (0-4 normal; 5-9 mild; 10-14 moderate; 15-21 severe): 4 Source: Developed by Drs. Sumeet Adair, Nayla Leon, Remy Hannah and colleagues, with an educational heidi from [employer]. TIFFANIE-7 Assessment Billing TIFFANIE-7 Assessment Tool: TIFFANIE-7 Assessment 04253 Review of Systems Const Denies body aches, Denies chills, Denies excessive sweating, Denies fatigue, Denies fever(s) and Denies headache(s) Eyes Denies blurry vision ENT Denies dysphagia, Denies vertigo, Denies dizziness, Denies headache(s), Denies hearing loss and Denies tinnitus Card Denies chest pain, Denies chest pain with activity, Denies syncope, Denies irregular heart rhythm and Denies dyspnea Resp Denies chest congestion, Denies cough, Denies hemoptysis, Denies dyspnea and Denies wheezing GI Denies abdominal pain, Denies melena, Denies hematochezia, Denies coffee ground emesis, Denies dysphagia, Denies diarrhea, Denies nausea and Denies vomiting Denies urinary frequency, Denies dysuria, Denies urinary hesitancy and Denies urinary urgency Musc Denies arthralgias, Denies limited range of motion, Denies muscle cramps and Denies muscle weakness Skin/Breast Denies rash and Denies skin ulcer Neuro Denies Abnormal speech present, Denies confusion, Denies vertigo, Denies dizziness, Denies syncope, Denies headache(s), Denies memory loss and Denies seizure-like activity Psych Denies anxiety, Denies confusion, Denies depression, Denies memory loss, Denies panic attacks and Denies paranoia Endo Denies excessive sweating, Denies fatigue, Denies flushing, Denies polydipsia and Denies polyuria Aller/Immun Denies wheezing Physical exam (Primary Care) Vital Signs: Last Vital Signs Pulse 87 06/01/24 16:10 BP 110/74 06/01/24 16:10 Pulse Ox 98 06/01/24 16:10 Oxygen Delivery Method Room Air 06/01/24 16:10 BMI result Body Mass Index 31.8 Tobacco/Smoking Status: Tobacco use Status Tobacco use date assessed 11/11/23 06/01/24 16:11 Patient Tobacco Use Status Never used Tobacco 06/01/24 16:26 e-Cigarette/Vaping Use Never Used 06/01/24 16:26 PHQ-9: PHQ-9 Score PHQ-9: Total score 6 06/01/24 16:25 Depression Screening Interpretation: Positive Depression Screening Follow-up: Existing condition Thrive Assessment: Date of Thrive Assessment Date Thrive assessed 06/01/24 06/01/24 16:14 Currently or been in a relationship where the following occur: No concerns reported Const General: cooperative, comfortable, no acute distress, alert and awake; No confusion Orientation/consciousness: oriented to person, oriented to place, patient oriented x3 and No confusion HENMT Head: Yes normocephalic Ears: external ears normal and TM's normal bilaterally Face and sinus: No sinus tenderness Mouth: Normal oral and palatal mucosa present and tongue normal Teeth and gingiva: dentition normal and gingiva normal Throat: Yes posterior oropharynx normal, Yes tonsils normal and Yes uvula midline Eyes Conjunctivae: conjunctivae normal Sclerae: sclerae normal Pupils: Equal, round and reactive pupils present EOM: EOMs intact bilaterally Direct Ophthalmoscopy: No no photophobia Neck Neck: Yes no lymphadenopathy, No tender and Yes no JVD Thyroid: Thyroid normal Carotids: no bruits Chest Chest palpation & inspection: no tenderness Resp Effort & Inspection: normal respiratory effort, no audible wheezes, not labored and no stridor Auscultation: no crackles, no rales, no rhonchi and no wheezes Cardio Jugular venous distension: no JVD Rate: regular rate, not bradycardic and not tachycardic Rhythm: regular rhythm Bruits: no carotid bruits Peripheral pulses: Peripheral pulses 2+ throughout GI Inspection: Yes normal to inspection, No abdominal wall ecchymosis and No visible herniation Palpation (GI): Soft to palpation, nontender, no guarding, not rigid and No hepatosplenomegaly present Auscultation: normoactive bowel sounds General: Yes no CVA tenderness Back/Spine/Pelvis Back: no CVA tenderness and No back tenderness Cervical Spine: cervical ROM normal Thoracic/Lumbar Spine: thoracic and lumbar spine normal to inspection, straight leg raise negative bilaterally, No thoraco-lumbar ROM limited and No lumbar spinal tenderness Skin Lesions: no lesions Rashes: no rashes Wounds: no wounds Neuro General: oriented to person, oriented to place, patient oriented x3, CN's II-XI intact bilaterally and No confusion Cranial nerves: Yes Equal, round and reactive pupils present and Yes Normal accommodation reflex present Cognition (Neuro): normal cognition Speech: No Abnormal speech present Gait exam (Neuro): Normal gait present Motor exam (neuro): 5/5 motor strength present throughout Extrem Right upper extremity: full ROM; no cyanosis Left upper extremity: full ROM; no cyanosis Right lower extremity: no edema Left lower extremity: no edema Psych Appearance: grossly normal Mental Status: mental status grossly normal Affect: normal affect Attitude: cooperative Thought process: Normal thought process present Office Procedures Flu Questionnaire Does the patient have a severe egg allergy?: No Does the patient have severe life threatening allergies?: No Does the patient have a fever or illness today?: No Has the patient ever had Guillain-[place] Syndrome?: No Has the patient ever had any past reaction to a flu shot?: No Immunizations Fluarix Triv 9010-8485 (PF) 45 mcg (15 mcg x 3)/0.5 mL IM syringe Performing Provider: Lucio Reyes PA-C [facility] Administered by: FLORENCIO Willis on 06/01/24 16:14 Dose Route Admin Location Dispensed Lot Number Expiration Date [facility] Courseware Developer 0.5 mL IM Left Deltoid 0.5 mL [id number] 01/24/25 [id number] [employer] VIS Given Date VIS Provided VIS Publication Date 06/01/24 Single Vaccine 21 Eligibility Eligibility Date Funding Source Not [facility] Eligible 06/01/24 Private Coding Level of Care Code Est Pt Prev Care 18-39y(51778) Diagnoses Annual physical exam Z00.00 Thrombocytopenia D69.6 Anxiety F41.9 Additional Codes TIFFANIE-7 Assessment Billing - TIFFANIE-7 Assessment Tool: TIFFANIE-7 Assessment 49522 ([id number]) PHQ-9 - 83111 - PHQ-9 Billing: Yes ([id number]) Assessment & Plan Assessment & Plan (1) Annual physical exam: Code(s): Z00.00 - Encounter for general adult medical examination without abnormal findings Category: Medical Plan: as per HPI (2) Thrombocytopenia: Code(s): D69.6 - Thrombocytopenia, unspecified Category: Medical Plan: Has been stable, has not had any episodes of rashes or bruising. Will continue to follow CBC. (3) Anxiety: Code(s): F41.9 - Anxiety disorder, unspecified Category: Medical Plan: Patient's TIFFANIE-7 score positive which has been existing condition for her. She does pretty significant anxiety. Patient not interested in any medication at this time. Orders: Orders Comprehensive [place]. Panel Fast 06/01/24 Z13.1 - Encounter for screening for diabetes mellitus Complete Blood Count no Diff 06/01/24 D69.6 - Thrombocytopenia, unspecified Influenza 2212-3001 Immunization 06/01/24 Z23 - Encounter for immunization
== END 2024-06-01 16:38 | disposition home or self-care (01) ==
LOC: HO.HMCH 15:57
PROVIDERS: PCP Physician Assistant; Visit Provider Physician Assistant
DX: Z00.00 Encounter for general adult medical examination without abnormal findings (principal); D69.6 Thrombocytopenia, unspecified; F41.9 Anxiety disorder, unspecified

== ENCOUNTER → 2024-06-01 15:57 | Outpatient (BNVA) | payer OTHER, SELFPAY | PROVIDERS: PCP Physician Assistant; Visit Provider Physician Assistant | DX: Z00.00 Encounter for general adult medical examination without abnormal findings (principal); Z23 Encounter for immunization; D69.6 Thrombocytopenia, unspecified; F41.9 Anxiety disorder, unspecified | CPT/HCPCS: 90471; 90656; 96127; 99395 ==

== ENCOUNTER 2024-06-04 08:39 | Outpatient (REF) | payer OTHER, SELFPAY ==
[2024-06-04 09:45] LABS: Hematocrit 41.5 % (37.0-47.0); Hemoglobin 13.8 g/dl (12.0-16.0); Mean Corpuscular HGB Conc 33.3 g/dl (31.0-35.0); Mean Corpuscular Hemoglobin 27.8 pg (27.0-33.0); Mean Corpuscular Volume 83.5 fL (80.0-98.0); Mean Platelet Volume 10.1 fL (9.4-12.3); Platelet Count 193 X10*3/uL (160-400); Red Blood Count 4.97 X10*6/uL (4.20-5.50); Red Cell Distribution Width 12.8 % (11.0-16.0); White Blood Count 7.8 X10*3/uL (4.8-10.8)
[2024-06-04 11:44] LABS: Alanine Aminotransferase 27 U/L (0-31); Albumin Level 4.3 g/dL (3.5-5.0); Alkaline Phosphatase 105 U/L (39-117); Anion Gap 14 (12-20); Aspartate Amino Transferase 24 U/L (5-31); Bilirubin Total 0.5 mg/dL (0.0-1.0); Blood Urea Nitrogen 14 mg/dL (9-16); Calcium 9.1 mg/dL (8.4-10.2); Carbon Dioxide 25 mmol/L (22-29); Chloride 103 mmol/L (96-108); Estimated Glomerular Filt Rate > 60; Glucose Fasting 99 mg/dL (60-99); Potassium 4.7 mmol/L (3.3-5.1); Sodium 137 mmol/L (135-145); Total Protein 7.3 g/dL (6.5-8.0)
== END 2024-06-04 08:40 | disposition home or self-care (01) ==
LOC: HO.LAB 08:39
PROVIDERS: PCP Physician Assistant; Visit Provider Physician Assistant
DX: D69.6 Thrombocytopenia, unspecified (principal); Z13.1 Encounter for screening for diabetes mellitus
CPT/HCPCS: 36415; 80053; 85027

== ENCOUNTER 2025-05-05 12:45 | Outpatient (AMB) | payer OTHER, SELFPAY ==
--- NOTE | 2025-05-05 12:51 | A.OFFPC_ITS ---
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 Accompanied by: Self / Same As Patient Allergies No Known Allergies Allergy (Verified 05/05/25 12:52) Medication List - Last Reconciled 05/05/25 by Елена Gonzalez MD albuterol sulfate 90 mcg/actuation (Ventolin HFA) 1 inh inhalation QID PRN 30 days ibuprofen 800 mg PO Q8H PNV 119-iron fum-folic acid 29 mg iron- 1 mg (Se-Reginaldo 19) 1 tab PO DAILY Tobacco use date assessed: 05/05/25 Dental Screening Dental Screen Date: 05/05/25 Did you have a dental visit in the last 12 months?: Yes Did you have a dental problem in the last 6 months where you did not have access to dental care?: No Was dental information given to patient?: Patient has dentist HPI HPI Comments History of Present Illness Details The patient is a 29-year-old female presenting with ear pain and chills. The ear pain began after childbirth and is associated with chills but no fever. The patient reports that the pain worsens when biting down, but there is no associated sore throat or dizziness. The patient recently gave to a girl via normal vaginal delivery without complications. She did not receive antibiotics during and has no history of complications related to the delivery. The patient reports low blood pressure, measured at 94/55 mmHg, which is slightly lower than normal. The physician advised that this could be due to the body's readjustment post-delivery and recommended monitoring. 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 1. Little interest or pleasure in doing things: not at all 2. Feeling down, depressed, or hopeless: not at all 3. Trouble falling or staying asleep, or sleeping too much: several days 4. Feeling tired or having little energy: several days 5. Poor appetite or overeating: not at all 6. Feeling bad about yourself - or that you are a failure or have let yourself or your family down: not at all 7. Trouble concentrating on things, such as reading the newspaper or watching television: not at all 8. Moving or speaking so slowly that other people could have noticed. Or the opposite - being so fidgety or restless that you have been moving around a lot more than usual: not at all 9. Thoughts that you would be better off or of hurting yourself in some way: not at all Total score: 2 Source: Developed by Drs. Sumeet Adair, Nayla Leon, Remy Hannah and colleagues, with an educational heidi from [employer]. Thrive Questionnaire Date Thrive assessed: 06/01/24 I am a: Patient What is your living situation today?: I have a steady place to live Within the past 12 months, did the food you bought not last and you didn't have the money to get more?: Never true Within the past 12 months, did you worry whether your food would run out before you got money to buy more?: Never true Do you have trouble paying for medicines?: No Do you have trouble getting transportation to medical appointments?: No Do you have trouble paying your heating and electricity bill?: No Do you have trouble taking care of your child, family member or friend?: No Do you have trouble with day-to-day activities such as bathing, preparing meals, shopping, managing finances, etc.?: No Are you currently unemployed and looking for a job?: No Are you interested in more education?: No Please select the resources that you would like help with: None Currently or been in a relationship where the following occur: No concerns reported THRIVE Score: 0 AUDIT C Alcohol Use Questionnaire (AUDIT-C) 1. How often do you have a drink containing alcohol?: Never Total Score: 0 TIFFANIE-7 AMB Questionnaire TIFFANIE-7 Date TIFFANIE - 7 assessed: 06/01/24 Feeling nervous, anxious, or on edge: 0 = Not at all Not being able to stop or control worryin = Not at all Worrying too much about different things: 0 = Not at all Trouble relaxin = Not at all Being so restless that it is hard to sit still: 0 = Not at all Becoming easily annoyed or irritable: 0 = Not at all Feeling afraid as if something awful might happen: 0 = Not at all Total TIFFANIE-7 score (0-4 normal; 5-9 mild; 10-14 moderate; 15-21 severe): 0 Source: Developed by Drs. Sumeet Adair, Nayla Leon, Remy Hannah and colleagues, with an educational heidi from [employer]. Review of Systems Const Details: Positives besides what was mentioned in HPI are in BOLD Constitutional: No Weight Change, No Fever, No Chills, No Night Sweats, No Fatigue, No Malaise ENT/Mouth: No Hearing Changes, No Ear Pain, No Nasal Congestion, No Sinus Pain, No Hoarseness, No sore throat, No Rhinorrhea, No Swallowing Difficulty Eyes: No Eye Pain, No Swelling, No Redness, No Foreign Body, No Discharge, No Vision Changes Cardiovascular: No Chest Pain, No SOB, No PND, No Dyspnea on Exertion, No Orthopnea, No Claudication, No Edema, No Palpitations Respiratory: No Cough, No Sputum, No Wheezing, No Smoke Exposure, No Dyspnea Gastrointestinal: No Nausea, No Vomiting, No Diarrhea, No Constipation, No Pain, No Heartburn, No Anorexia, No Dysphagia, No Hematochezia, No Melena, No Flatulence, No Jaundice Genitourinary: No Dysmenorrhea, No DUB, No Dyspareunia, No Dysuria, No Urinary Frequency, No Hematuria, No Urinary Incontinence, No Urgency, No Flank Pain, No Urinary Flow Changes, No Hesitancy Musculoskeletal: No Arthralgias, No Myalgias, No Joint Swelling, No Joint Stiffness, No Back Pain, No Neck Pain, No Injury History Skin: No Skin Lesions, No Pruritis, No Hair Changes, No Breast/Skin Changes, No Nipple Discharge Neuro: No Weakness, No Numbness, No Paresthesias, No Loss of Consciousness, No Syncope, No Dizziness, No Headache, No Coordination Changes, No Recent Falls Psych: No Anxiety/Panic, No Depression, No Insomnia, No Personality Changes, No Delusions, No Rumination, No SI/HI/AH/VH, No Social Issues, No Memory Changes, No Violence/Abuse Hx., No Eating Concerns Heme/Lymph: No Bruising, No Bleeding, No Transfusions History, No Lymphaden opathy Endocrine: No Polyuria, No Polydipsia, No Temperature Intolerance Physical exam (Primary Care) Vital Signs: Last Vital Signs Temp 97.3 F 05/05/25 12:52 Pulse 96 05/05/25 12:52 Resp 18 05/05/25 12:52 BP 94/54 L 05/05/25 12:52 Pulse Ox 97 05/05/25 12:52 Oxygen Delivery Method Room Air 05/05/25 12:52 BMI result Body Mass Index 33.7 Tobacco/Smoking Status: Tobacco use Status Tobacco use date assessed 05/05/25 05/05/25 12:59 Patient Tobacco Use Status Never used Tobacco 05/05/25 12:59 e-Cigarette/Vaping Use Never Used 05/05/25 12:59 PHQ-9: PHQ-9 Score PHQ-9: Total score 2 05/05/25 12:59 Thrive Assessment: Date of Thrive Assessment Date Thrive assessed 06/01/24 05/05/25 12:59 Currently or been in a relationship where the following occur: No concerns reported Const Other: Pertinent findings are in BOLD GENERAL APPEARANCE NAD, activity normal for age, well developed/ well nourished, no cyanosis, pallor, or diaphoresis. EYES lids/conjunctiva normal. EARS/NOSE/THROAT Mucous membranes moist, nares normal, lips/teeth normal uvula midline without oral pharyngeal erythema, exudate or swelling TMs normal bilaterally. No lymphangitis/lymphedema. HEAD/NECK normocephalic atraumatic, no facial trauma, neck is supple. RESPIRATORY respiratory effort normal, speaks in full sentences, no tripod position, no accessory muscle use. Lungs clear to auscultation without rhonchi, wheezes, rales CARDIAC Regular rate and rhythm, no edema. ABDOMINAL Soft, ND/NT. No evidence of fluid wave. No pulsatile masses on exam, rebound tenderness, Borrero sign or pain over Mcburney's point. MUSCLES/EXTREMITIES No abnormal range of motion, no swelling. SKIN Warm, pink and dry. No rashes, dermatoses, petechiae or lesions. NEUROLOGICAL Speech is clear and appropriate. Normal level of consciousness. Gait and coordination are normal. 5/5 strength in all extremities. PSYCH Normal mood and affect. Judgement/competence is appropriate Coding Level of Care Code Est Pt Level 4 (44642) Diagnoses Otalgia H92.09 Hypotension I95.9 Assessment & Plan Assessment & Plan (1) Otalgia: Code(s): H92.09 - Otalgia, unspecified ear Category: Medical Plan: - Prescribed ear drops to be used twice daily. - Recommended olive oil application for pain relief. - Advised use of Tylenol or ibuprofen for pain management. - Follow-up scheduled in two weeks to reassess symptoms. (2) Hypotension: Code(s): I95.9 - Hypotension, unspecified Category: Medical Plan: - Advised monitoring blood pressure as the body readjusts post-delivery. - Recommended follow-up with primary care or PROTECTIVE SIGNAL OPERATOR. Plan I discussed with the patient that her ear pain does not appear to be due to an infection or inflammation, and I recommended using ear drops and olive oil for relief. I also advised her to use Tylenol or ibuprofen for pain management and scheduled a follow-up in two weeks to reassess her symptoms. Regarding her low blood pressure, I explained that it might be due to post- delivery adjustments and recommended monitoring it. I suggested she follow up with her primary care physician or PROTECTIVE SIGNAL OPERATOR if the issue persists. Medications: New ciprofloxacin-dexamethasone 0.3-0.1 % 4 drps otic (ear) left BID 7.5 mL 0RF 7 days
[2025-05-05 12:52] VITALS: BP 94/54; PULSE 96; RESP 18; TEMP 36.3; O2SAT 97; BMI 33.7
== END 2025-05-05 13:12 | disposition home or self-care (01) ==
LOC: HO.HMCH 12:46
PROVIDERS: PCP Physician Assistant; Visit Provider Internal Medicine
DX: H92.09 Otalgia, unspecified ear (principal); I95.9 Hypotension, unspecified

== ENCOUNTER → 2025-05-05 12:45 | Outpatient (BNVA) | payer OTHER, SELFPAY | PROVIDERS: PCP Physician Assistant; Visit Provider Internal Medicine | DX: H92.09 Otalgia, unspecified ear (principal); I95.9 Hypotension, unspecified | CPT/HCPCS: 99212 ==

== ENCOUNTER 2025-06-02 15:59 | Outpatient (AMB) | payer OTHER, SELFPAY ==
[2025-06-02 16:04] VITALS: BP 122/74; PULSE 91; TEMP 36.3; O2SAT 98; BMI 33.1
--- NOTE | 2025-06-02 16:04 | MHC.PC.OV ---
Vital Signs 06/02/25 16:04 Height 5 ft 2 in Weight 181 lb 2 oz BMI 33.1 BP 122/74 Blood Pressure Location Lt brachial Position Sitting Pulse 91 Pulse Source Pulse Oximeter Temp 97.3 F Temp Source Temporal Artery Scan Pulse Oximetry (%) 98 Oxygen Delivery Method Room Air Intake Visit Reasons: PE Allergies No Known Allergies Allergy (Verified 06/02/25 16:09) Medication List - Last Reconciled 06/02/25 by Lucio Reyes PA-C albuterol sulfate 90 mcg/actuation (Ventolin HFA) 1 inh inhalation QID PRN 30 days ibuprofen 800 mg PO Q8H PNV 119-iron fum-folic acid 29 mg iron- 1 mg (Se-Reginaldo 19) 1 tab PO DAILY Tobacco use date assessed: 06/02/25 Dental Screening Dental Screen Date: 06/02/25 Did you have a dental visit in the last 12 months?: Yes Did you have a dental problem in the last 6 months where you did not have access to dental care?: No Was dental information given to patient?: Patient has dentist HPI PE HPI Details Patient is a 29 year-old female here today for an annual physical.? Patient has a past medical history significant for asthma, anxiety and thrombocytopenia. Recently had a brand new baby girl .. Thrombocytopenia: Is followed by Hematology. Most recent platelet count of 179. Will recheck CBC. . . Asthma: She reports overall her asthma has been well controlled with only p.r.n. use of her albuterol inhaler. She recently had an illness that caused her to have to use her albuterol inhaler much more often. Otherwise have not been using her Advair at all.? 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 [facility] Medical History Purpura Ganglion of left wrist (~2007) Asthma Surgical History History of wisdom tooth extraction History of tonsillectomy and adenoidectomy Family History Mother High blood pressure Diabetes Thyroid condition COPD (chronic obstructive pulmonary disease) Father High blood pressure Social History (Updated 06/02/25 @ 16:13 by Lucio Reyes PA-C) Household Members: Family Housing: House Alcohol intake: never Patient Tobacco Use Status: Never used Tobacco e-Cigarette/Vaping Use: Never Used Second Hand Smoke Exposure: No service: No Current occupational status: employed 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 1. Little interest or pleasure in doing things: not at all 2. Feeling down, depressed, or hopeless: not at all 3. Trouble falling or staying asleep, or sleeping too much: several days 4. Feeling tired or having little energy: several days 5. Poor appetite or overeating: not at all 6. Feeling bad about yourself - or that you are a failure or have let yourself or your family down: not at all 7. Trouble concentrating on things, such as reading the newspaper or watching television: not at all 8. Moving or speaking so slowly that other people could have noticed. Or the opposite - being so fidgety or restless that you have been moving around a lot more than usual: not at all 9. Thoughts that you would be better off or of hurting yourself in some way: not at all Total score: 2 Depression Screening Interpretation: Positive Depression Screening Follow-up: Existing condition Depression Screening Done: Yes 58379 - PHQ-9 Billing: Patient declined-do not bill Source: Developed by Drs. Sumeet Adair, Nayla Leon, Remy Hannah and colleagues, with an educational heidi from [employer]. Thrive Questionnaire Date Thrive assessed: 05/05/25 I am a: Patient What is your living situation today?: I have a steady place to live Within the past 12 months, did the food you bought not last and you didn't have the money to get more?: Never true Within the past 12 months, did you worry whether your food would run out before you got money to buy more?: Never true Do you have trouble paying for medicines?: No Do you have trouble getting transportation to medical appointments?: No Do you have trouble paying your heating and electricity bill?: No Do you have trouble taking care of your child, family member or friend?: No Do you have trouble with day-to-day activities such as bathing, preparing meals, shopping, managing finances, etc.?: No Are you currently unemployed and looking for a job?: No Are you interested in more education?: No Please select the resources that you would like help with: None Currently or been in a relationship where the following occur: No concerns reported THRIVE Score: 0 AUDIT C Alcohol Use Questionnaire (AUDIT-C) 1. How often do you have a drink containing alcohol?: Never 3. How often do you have six or more drinks on one occasion?: Never Total Score: 0 TIFFANIE-7 AMB Questionnaire TIFFANIE-7 Date TIFFANIE - 7 assessed: 06/02/25 Feeling nervous, anxious, or on edge: 0 = Not at all Not being able to stop or control worryin = Not at all Worrying too much about different things: 0 = Not at all Trouble relaxin = Not at all Being so restless that it is hard to sit still: 0 = Not at all Becoming easily annoyed or irritable: 0 = Not at all Feeling afraid as if something awful might happen: 0 = Not at all Total TIFFANIE-7 score (0-4 normal; 5-9 mild; 10-14 moderate; 15-21 severe): 0 Source: Developed by Drs. Sumeet Adair, Nayla Leon, Remy Hannah and colleagues, with an educational heidi from [employer]. TIFFANIE-7 Assessment Billing TIFFANIE-7 Assessment Tool: TIFFANIE-7 Assessment 80383 Review of Systems Const Denies body aches, Denies chills, Denies excessive sweating, Denies fatigue, Denies fever(s) and Denies headache(s) Eyes Denies blurry vision ENT Denies dysphagia, Denies vertigo, Denies dizziness, Denies headache(s), Denies hearing loss and Denies tinnitus Card Denies chest pain, Denies chest pain with activity, Denies syncope, Denies irregular heart rhythm and Denies dyspnea Resp Denies chest congestion, Denies cough, Denies hemoptysis, Denies dyspnea and Denies wheezing GI Denies abdominal pain, Denies melena, Denies hematochezia, Denies coffee ground emesis, Denies dysphagia, Denies diarrhea, Denies nausea and Denies vomiting Denies urinary frequency, Denies dysuria, Denies urinary hesitancy and Denies urinary urgency Musc Denies arthralgias, Denies limited range of motion, Denies muscle cramps and Denies muscle weakness Skin/Breast Denies rash and Denies skin ulcer Neuro Denies Abnormal speech present, Denies confusion, Denies vertigo, Denies dizziness, Denies syncope, Denies headache(s), Denies memory loss and Denies seizure-like activity Psych Denies anxiety, Denies confusion, Denies depression, Denies memory loss, Denies panic attacks and Denies paranoia Endo Denies excessive sweating, Denies fatigue, Denies flushing, Denies polydipsia and Denies polyuria Aller/Immun Denies wheezing Physical exam (Primary Care) Vital Signs: Last Vital Signs Temp 97.3 F 06/02/25 16:04 Pulse 91 06/02/25 16:04 BP 122/74 06/02/25 16:04 Pulse Ox 98 06/02/25 16:04 Oxygen Delivery Method Room Air 06/02/25 16:04 BMI result Body Mass Index 33.1 Tobacco/Smoking Status: Tobacco use Status Tobacco use date assessed 06/02/25 06/02/25 16:07 Patient Tobacco Use Status Never used Tobacco 06/02/25 16:07 e-Cigarette/Vaping Use Never Used 06/02/25 16:07 PHQ-9: PHQ-9 Score PHQ-9: Total score 2 06/02/25 16:07 Depression Screening Interpretation: Positive Depression Screening Follow-up: Existing condition Thrive Assessment: Date of Thrive Assessment Date Thrive assessed 05/05/25 06/02/25 16:07 Currently or been in a relationship where the following occur: No concerns reported Const General: cooperative, comfortable, no acute distress, alert and awake; No confusion Orientation/consciousness: oriented to person, oriented to place, patient oriented x3 and No confusion HENMT Head: Yes normocephalic Ears: external ears normal and TM's normal bilaterally Face and sinus: No sinus tenderness Mouth: Normal oral and palatal mucosa present and tongue normal Teeth and gingiva: dentition normal and gingiva normal Throat: Yes posterior oropharynx normal, Yes tonsils normal and Yes uvula midline Eyes Conjunctivae: conjunctivae normal Sclerae: sclerae normal Pupils: Equal, round and reactive pupils present EOM: EOMs intact bilaterally Direct Ophthalmoscopy: No no photophobia Neck Neck: Yes no lymphadenopathy, No tender and Yes no JVD Thyroid: Thyroid normal Carotids: no bruits Chest Chest palpation & inspection: no tenderness Resp Effort & Inspection: normal respiratory effort, no audible wheezes, not labored and no stridor Auscultation: no crackles, no rales, no rhonchi and no wheezes Cardio Jugular venous distension: no JVD Rate: regular rate, not bradycardic and not tachycardic Rhythm: regular rhythm Bruits: no carotid bruits Peripheral pulses: Peripheral pulses 2+ throughout GI Inspection: Yes normal to inspection, No abdominal wall ecchymosis and No visible herniation Palpation (GI): Soft to palpation, nontender, no guarding, not rigid and No hepatosplenomegaly present Auscultation: normoactive bowel sounds General: Yes no CVA tenderness Back/Spine/Pelvis Back: no CVA tenderness and No back tenderness Cervical Spine: cervical ROM normal Thoracic/Lumbar Spine: thoracic and lumbar spine normal to inspection, straight leg raise negative bilaterally, No thoraco-lumbar ROM limited and No lumbar spinal tenderness Skin Lesions: no lesions Rashes: no rashes Wounds: no wounds Neuro General: oriented to person, oriented to place, patient oriented x3, CN's II-XI intact bilaterally and No confusion Cranial nerves: Yes Equal, round and reactive pupils present and Yes Normal accommodation reflex present Cognition (Neuro): normal cognition Speech: No Abnormal speech present Gait exam (Neuro): Normal gait present Motor exam (neuro): 5/5 motor strength present throughout Extrem Right upper extremity: full ROM; no cyanosis Left upper extremity: full ROM; no cyanosis Right lower extremity: no edema Left lower extremity: no edema Psych Appearance: grossly normal Mental Status: mental status grossly normal Affect: normal affect Attitude: cooperative Thought process: Normal thought process present Office Procedures Flu Questionnaire Does the patient have a severe egg allergy?: No Does the patient have severe life threatening allergies?: No Does the patient have a fever or illness today?: No Has the patient ever had Guillain-[place] Syndrome?: No Has the patient ever had any past reaction to a flu shot?: No Immunizations Fluarix [id number] (PF) 45 mcg (15 mcg x 3)/0.5 mL IM syringe Performing Provider: Lucio Reyes PA-C [facility] [place] Administered by: Staci Matthew CMA on 06/02/25 16:11 Dose Route Admin Location Dispensed Lot Number Expiration Date NDC National Account Executive 0.5 mL IM Left Deltoid 0.5 mL [id number] 01/24/26 30816-088-53 [employer] VIS Given Date VIS Provided VIS Publication Date 06/02/25 Single Vaccine 24 Eligibility Eligibility Date Funding Source Not [facility] Eligible 06/02/25 Private Coding Level of Care Code Est Pt Prev Care 18-39y([id number]) Diagnoses Annual physical exam Z00.00 Thrombocytopenia D69.6 Anxiety F41.9 Additional Codes TIFFANIE-7 Assessment Billing - TIFFANIE-7 Assessment Tool: TIFFANIE-7 Assessment 16609 ([id number]) Assessment & Plan Assessment & Plan (1) Annual physical exam: Code(s): Z00.00 - Encounter for general adult medical examination without abnormal findings Category: Medical Plan: as per HPI (2) Thrombocytopenia: Code(s): D69.6 - Thrombocytopenia, unspecified Category: Medical Plan: Has been stable, has not had any episodes of rashes or bruising. Will continue to follow CBC. (3) Anxiety: Code(s): F41.9 - Anxiety disorder, unspecified Category: Medical Plan: Patient's TIFFANIE-7 score 0 She has a history of anxiety, she reports her anxiety has not been too bad . Not interested in any medication or therapy at this time. Orders: Orders Comprehensive [place]. Panel Fast Today Z13.1 - Encounter for screening for diabetes mellitus Complete Blood Count no Diff Today D69.6 - Thrombocytopenia, unspecified Influenza [id number] Immunization Today Z23 - Encounter for immunization
--- OUTSIDE RECORDS SUMMARY | 2025-06-02 18:32 | XMS_ITS | Encounter Summary ---
Author Organization [facility] Address [address] [place] [id number] Phone Care Team Providers Care Seed Trucker Name Role Phone Meenakshi Harris MD Primary Care Provider Unavailabl e Encounter Details Date Type Department Care Team (Late st Contact Info) Description 03/13/2017 Conversion Encounter [address] [id number] Social History Tobacco Use Types Packs/Day Years Used Date Smoking Tobacco: Never Comments:Never smoker Comments Unknown Sex and Gender Information Value Date Recorded Sex Assigned at Not on file Legal Sex Female 5:24 PM EDT Gender Identity Not on file Sexual Orientation Not on file documented as of this encounter Plan of Treatment Not on file documented as of this encounter Visit Diagnoses Not on filedocumented in this encounter Care Teams Seed Trucker Relationship Specialty Start Date End Date Meenakshi Harris MD PCP - General 03/07/17 01/20/23 documented as of this encounter
--- OUTSIDE RECORDS SUMMARY | 2025-06-02 18:32 | XMS_ITS | Encounter Summary ---
Author Organization [facility] Address [address] [place] [address] Phone Care Team Providers Care Missile Inspector Preflight Name Role Phone Meenakshi Harris MD Primary Care Provider Unavailabl e Encounter Details Date Type Department Care Team (Late st Contact Info) Description 09/30/2012 Documentation [facility] [place] [address] [place] [address] Family Medicine, Physician [address] [place] [address] Social History Tobacco Use Types Packs/Day Years Used Date Smoking Tobacco: Never Assessed Comments Unknown Sex and Gender Information Value Date Recorded Sex Assigned at Not on file Legal Sex Female 5:24 PM EDT Gender Identity Not on file Sexual Orientation Not on file documented as of this encounter Plan of Treatment Not on file documented as of this encounter Visit Diagnoses Not on filedocumented in this encounter Care Teams Missile Inspector Preflight Relationship Specialty Start Date End Date Meenakshi Harris MD PCP - General 03/07/17 01/20/23 documented as of this encounter
--- OUTSIDE RECORDS SUMMARY | 2025-06-02 18:32 | XMS_ITS | Encounter Summary ---
Author Organization [facility] Address [address] [place] [address] Phone Care Team Providers Care Senior Php Software Developer Name Role Phone Meenakshi Harris MD Primary Care Provider Unavailabl e Encounter Details Date Type Department Care Team (Late st Contact Info) Description 07/13/2013 Documentation [facility] [place] [address] [place] [address] Family Medicine, Physician [address] [place] [address] Social History Tobacco Use Types Packs/Day Years [...] on filedocumented in this encounter Care Teams Senior Php Software Developer Relationship Specialty Start Date End Date Meenakshi Harris MD PCP - General 03/07/17 01/20/23 documented as of this encounter
--- OUTSIDE RECORDS SUMMARY | 2025-06-02 18:32 | XMS_ITS | Encounter Summary ---
Author Organization [facility] Address [address] [place] [address] Phone Care Team Providers Care Cutter Finisher Name Role Phone Meenakshi Harris MD Primary Care Provider Unavailabl e Encounter Details Date Type Department Care Team (Late st Contact Info) Description 03/11/2016 Documentation [facility] [place] [facility] [place] [address] Family Medicine, Physician [address] [place] [address] Social History Tobacco Use Types Packs/Day Years [...] on filedocumented in this encounter Care Teams Cutter Finisher Relationship Specialty Start Date End Date Meenakshi Harris MD PCP - General 03/07/17 01/20/23 documented as of this encounter
--- OUTSIDE RECORDS SUMMARY | 2025-06-02 18:32 | XMS_ITS | Encounter Summary ---
Author Organization [facility] Address [address] [place] [address] Phone Care Team Providers Care Car Carder Name Role Phone Meenakshi Harris MD Primary Care Provider Unavailabl e Encounter Details Date Type Department Care Team (Late st Contact Info) Description 04/29/2016 Documentation [facility] [place] [address] [place] [address] Family Medicine, Physician [address] [place] [address] Social History Tobacco Use Types Packs/Day Years [...] on filedocumented in this encounter Care Teams Car Carder Relationship Specialty Start Date End Date Meenakshi Harris MD PCP - General 03/07/17 01/20/23 documented as of this encounter
--- OUTSIDE RECORDS SUMMARY | 2025-06-02 18:32 | XMS_ITS | Encounter Summary ---
Author Organization [facility] Address [address] [place] [address] Phone Care Team Providers Care Community Midwife Name Role Phone Meenakshi Harris MD Primary Care Provider Unavailabl e Encounter Details Date Type Department Care Team (Late st Contact Info) Description 09/29/2012 Documentation [facility] [place] [address] [place] [address] Family Medicine, Physician [address] [place] [address] Social History Tobacco Use Types Packs/Day Years [...] on filedocumented in this encounter Care Teams Community Midwife Relationship Specialty Start Date End Date Meenakshi Harris MD PCP - General 03/07/17 01/20/23 documented as of this encounter
--- OUTSIDE RECORDS SUMMARY | 2025-06-02 18:32 | XMS_ITS | Encounter Summary ---
Author Organization [facility] Address [address] [place] [address] Phone Care Team Providers Care Rackman Name Role Phone Meenakshi Harris MD Primary Care Provider Unavailabl e Encounter Details Date Type Department Care Team (Late st Contact Info) Description 07/10/2011 Documentation [facility] [place] [address] [place] [address] Family Medicine, Physician [address] [place] [address] Social History Tobacco Use Types Packs/Day Years [...] on filedocumented in this encounter Care Teams Rackman Relationship Specialty Start Date End Date Meenakshi Harris MD PCP - General 03/07/17 01/20/23 documented as of this encounter
--- OUTSIDE RECORDS SUMMARY | 2025-06-02 18:32 | XMS_ITS | Encounter Summary ---
Author Organization [facility] Address [address] [place] [address] Phone Care Team Providers Care Sewage Plant Attendant Name Role Phone Meenakshi Harris MD Primary Care Provider Unavailabl e Encounter Details Date Type Department Care Team (Late st Contact Info) Description 05/22/2012 Documentation [facility] [place] [address] [place] [address] Family Medicine, Physician [address] [place] [address] Social History Tobacco Use Types Packs/Day Years [...] on filedocumented in this encounter Care Teams Sewage Plant Attendant Relationship Specialty Start Date End Date Meenakshi Harris MD PCP - General 03/07/17 01/20/23 documented as of this encounter
--- OUTSIDE RECORDS SUMMARY | 2025-06-02 18:32 | XMS_ITS | Encounter Summary ---
Author Organization [facility] Address [address] [place] [address] Phone Care Team Providers Care Fit Model Name Role Phone Meenakshi Harris MD Primary Care Provider Unavailabl e Encounter Details Date Type Department Care Team (Late st Contact Info) Description 09/28/2012 Documentation [facility] [place] [address] [place] [address] Family Medicine, Physician [address] [place] [address] Social History Tobacco Use Types Packs/Day Years [...] on filedocumented in this encounter Care Teams Fit Model Relationship Specialty Start Date End Date Meenakshi Harris MD PCP - General 03/07/17 01/20/23 documented as of this encounter
--- OUTSIDE RECORDS SUMMARY | 2025-06-02 18:33 | XMS_ITS | Encounter Summary ---
Author Organization [facility] Address [address] [place] [address] Phone Care Team Providers Care Dental Service Technician Name Role Phone Meenakshi Harris MD Primary Care Provider Unavailabl e Encounter Details Date Type Department Care Team (Late st Contact Info) Description 03/30/2015 Documentation [facility] [place] [facility] [place] [address] Family Medicine, Physician [facility] [place] [address] Social History Tobacco Use Types Packs/Day Years [...] on filedocumented in this encounter Care Teams Dental Service Technician Relationship Specialty Start Date End Date Meenakshi Harris MD PCP - General 03/07/17 01/20/23 documented as of this encounter
--- OUTSIDE RECORDS SUMMARY | 2025-06-02 18:33 | XMS_ITS | Encounter Summary ---
Author Organization [facility] Address [address] [place] [address] Phone Care Team Providers Care Wet Char Conveyor Tender Name Role Phone Meenakshi Harris MD Primary Care Provider Unavailabl e Encounter Details Date Type Department Care Team (Late st Contact Info) Description 07/14/2013 Documentation [facility] [place] Medicine [address] [place] [address] Family Medicine, Physician [address] [place] [address] Social History Tobacco Use Types Packs/Day Years [...] on filedocumented in this encounter Care Teams Wet Char Conveyor Tender Relationship Specialty Start Date End Date Meenakshi Harris MD PCP - General 03/07/17 01/20/23 documented as of this encounter
--- OUTSIDE RECORDS SUMMARY | 2025-06-02 18:33 | XMS_ITS | Encounter Summary ---
Author Organization [facility] Address [address] [place] [address] Phone Care Team Providers Care Patient Access Name Role Phone Meenakshi Harris MD Primary Care Provider Unavailabl e Encounter Details Date Type Department Care Team (Late st Contact Info) Description 09/13/2014 Documentation [facility] [place] [facility] [place] [address] Family Medicine, [place] [address] Social History Tobacco Use Types Packs/Day Years [...] on filedocumented in this encounter Care Teams Patient Access Relationship Specialty Start Date End Date Meenakshi Harris MD PCP - General 03/07/17 01/20/23 documented as of this encounter
--- OUTSIDE RECORDS SUMMARY | 2025-06-02 18:33 | XMS_ITS | Encounter Summary ---
Author Organization [facility] Address [address] [place] [address] Phone Care Team Providers Care Seed Trucker Name Role Phone Meenakshi Harris MD Primary Care Provider Unavailabl e Encounter Details Date Type Department Care Team (Late st Contact Info) Description 09/21/2013 Documentation [facility] [place] [address] [place] [address] Family Medicine, Physician [address] [place] [address] Social History Tobacco Use Types Packs/Day Years [...]
--- OUTSIDE RECORDS SUMMARY | 2025-06-02 18:33 | XMS_ITS | Clinical Summary ---
Author Organization [facility] Address [address] [place] [address] Phone Care Team Providers Care Bulk Sealer Operator Name Role Phone Unavailable Primary Care Provider Unavailabl e Allergies No known active allergies Medications sodium chloride 0.9 % nebulizer solution with albuterol (5 MG/ML) 0.5% nebulizer solution 0.6 mg/mL ALBUTEROL SULFATE; inhale 3 milliliter by nebulization route 3 times every day; 2.5 MG/3 ML (0.083 %); 05/23/2016; Active 6 Active MICROGESTIN FE 08/16 1-20 MG-MCG per tablet TK 1 T PO QD 2 7 Active albuterol HFA (PROAIR HFA) 108 (90 BASE) MCG/ACT inhaler PROAIR HFA; 2 puffs Q 3-4 hours prn wheeze; 90 MCG; 05/23/2016; Active 6 Active acetaminophen 500 MG tabletIndicatio ns:Migraine with status migrainosus, not intractable, unspecified migraine type Take two tablets every 4 hours for headache. 30 tablet 2 7 Active cyclobenzaprine 10 MG tabletIndicatio ns:Acute left-sided low back pain with left-sided sciatica Take 1 tablet (10 mg total) by mouth 3 (three) times a day as needed for muscle spasms for up to 10 days. 30 tablet 8 Active Active Problems Problem Noted Date Diagnosed Date Thrombocytopenia 03/26/2018 Overview (10/08/2019): Noted in summer 2017 at [facility] when she had platelets 34K though had a low count in 2015 as well. Seen at [facility] (see letter from Feb 2018); likely immune; sending Hep C. Defer to PCP re HIV, SLE, etc. 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 Return to [facility] in 1 mo, consider cxr in addition to rpt labs. Mild intermittent asthma without complication Immunizations Immunization Administration Dates Next Due DTaP 5 10/20/2000, 8,03/01/1997,11/23,1996 H1N1 06/02/2009 HPV, Quadrivalent 10/24/2011,06/04/2011,03/05/20 11 Hep A, ped/adol 05/10/2014,08/05/2013 Hep B, ped/adol 06/06/1997,1996,1996 Hib (PRP-T) 11/24/1997, 7,1996,09/24 IPV 10/29/2001 Influenza Split 04/29/2013, 2,05/01/2010,06/04,06/05/1999,05/11/1998 Influenza, injectable, quadrivalent 07/18/2015 Influenza, injectable, quadr ivalent, preservative free 04/16/2017,03/22/2016,05/10/2014 Influenza, injectable, trivalent 06/04/2000,11/0 03/1999,05/11/1998 MMR 10/07/2000,08/05/1997 Meningococcal B Trumenba 09/01/2018,02/27/2018 Meningococcal Conj (Menactra) MCV4P 05/10/2014,0 04/08/2008 OPV 03/01/1997,1996,1996 Td (adult) (Tenivac), 5 Lf t etanus toxoid, PF, adsorbed 10/07/2014 Tdap 04/08/2008 Varicella 04/08/2008,08/05/1997 Family History Relation Name Status Comments Brother Brother: Asthma Father Father: Migrain es Maternal Grandmother Materna l grandmother: Diabetes mellitus Mother Mother: Migrain es, Hypertension, Diabetes mellitus Other Family history of Thyroid disease, No family history of *Sudden /NH under 55, No family history of *Heart Disease, No family history of Cancer, Family history of Obesity, No family history of Deafness, No family history of Strabismus, Family history of Migraines, Family history of *CVA/Stroke, No family history of Seizure disorder, No family history of *Thrombophilia Sister 1 Sister: ADD/ADH D, Asthma, Asthma Sister 2 Sister: ADD/ADH D, Asthma, Asthma Sister 3 Sister: ADD/ADH D, Asthma, Asthma Social History Tobacco Use Types Packs/Day Years Used Date Smoking Tobacco: Never Smokeless Tobacco: Never Comments:Never smoker Alcohol Use Standard Drinks/Week Comments Yes 0 (1 standard drink = 0.6 oz pur e alcohol) Comments Unknown Sex and Gender Information Value Date Recorded Sex Assigned at Not on file Legal Sex Female 5:24 PM EDT Gender Identity Not on file Sexual Orientation Not on file Last Filed Vital Signs Vital Sign Reading Time Taken Comments Blood Pressure 117/77 02/27/2018 1:20 PM EDT Pulse 88 02/27/2018 1:20 PM EDT Temperature 36.6 C (97.8 F) 02/27/2018 1:20 PM EDT Respiratory Rate 14 02/27/2018 1:20 PM EDT Oxygen Saturation 98% 06/30/2014 12: 00 AM EST Inhaled Oxygen Concentration - - Weight 59.3 kg (130 lb 12.8 oz) 02/27/2018 1:20 PM EDT Height 159.4 cm (5' 2.75 ) 02/27/2018 1:20 PM ED T Body Mass Index 23.36 02/27/2018 1:20 PM EDT Plan of Treatment Health Maintenance Due Date Last Done Comments DTaP,Tdap,and Td Vaccines (8 - Td or Tdap) 10/07/2024 10/07/2014, 04/08/2008, 10/20/2000, Additional history exists Influenza Vaccines (#1) 2025 04/16/20 17, 03/22/2016, 07/18/2015, Additional history exists COVID-19 Vaccine ( season) 2025 Hepatitis B Vaccines Completed 06/06/1997, 1996, 1996 HIB Vaccines Completed 11/24/1997, 11/1996, 1996, Additional history exists MMR Vaccines Completed 10/07/2000, 08/05/1997 IPV Vaccines Completed 10/29/2001, 11/1996, 1996, Additional history exists Varicella Vaccines Completed 04/08/2008, 08/05/1997 HPV Vaccines Completed 10/24/2011, 02/2011, 03/05/2011 Hepatitis A Vaccines Completed 05/10/2014, 08/05/19 14 Meningococcal Vaccine Completed 05/10/2014, 008 Men B Vaccine Completed 09/01/2018, 02/27/2018 Pneumococcal Vaccine Aged Out No long er eligible based on patient's age to complete this topic Procedures * Due to [place] [employer] law, this organization might not be sharing sensitive test results. Procedure Name Priority Date/Time Associated Diagnosis Comments CHLAMYDIA AND GONORRHEA, AMPLIFIED Routine 02/27/2018 1:35 PM EDT Well adult exam from Last 3 Months or Most Recently Relevant to Health Maintenance Results * Due to [place] [employer] law, this organization might not be sharing sensitive test results. * Chlamydia and Gonorrhoea, Amplified (02/27/2018 1:35 PM EDT) Chlamydia Trachomatis, DNA Probe NEGATIVE (NEG) [facility] Comment: No Chlamydia Trachomatis RNA detected in this patient's sample (REFERENCE RANGE/NORMAL VALUE: NOT DETECTED) Note: This test uses vb net programmer- mediated amplification method to detect rRNA from C. Trachomatis URINE GC AMP PROBE NEGATIVE (NEG) [facility] Comment: No Neisseria Gonorrhoeae RNA detected in this patient's sample (REFERENCE RANGE/NORMAL VALUE: NOT DETECTED) NOTE: This test uses vb net programmer-mediated amplification method to detect rRNA from N.Gonorrhoeae. A negative result does not preclude infection. In the case of a negative urine result, testing of an endocervical(female) or urethral (male) specimen is recommended if there is high clinical suspicion of infection. Due to very high sensitivity of Nucleic Acid Amplification Test, false positive results may occur. Therefore, specimen handling is extremely important. In patients in whom the disease is unlikely, additional sample for testing should be considered after an initial positive result. The performance characteristics of this test have not been evaluated in children. The Aptima Combo2 assay is not intended for the evaluation of suspected sexual abuse or for other medico-legal indications. The ordering provider should assess if the patient had consensual sex without risk of sexual abuse. Consult the [facility] if needed. Contact phone number . Therapeutic failure or success cannot be determined with the Aptima Combo2 assay since nucleic acid may persist following appropriate antimicrobial therapy. The Centers for Disease Control and Prevention (CDC) recommends confirmatory retesting using culture or a different nucleic acid amplification test when positive results occur, if indicated. Testing performed or reported by [facility], a Service of [facility], [address] [place] [address] CLIA [id number] Prachi Nevarez MD, PhD, Community Service Director Urine 02/27/2018 1:35 PM EDT 02/27/2018 11:50 PM EDT us Meenakshi Harris MD LAB MICROBIOLOGY - GENERAL ORDER ZANE Final Result [facility] from Last 3 Months or Most Recently Relevant to Health Maintenance Insurance * Guarantor: ERWIN LARIOS Account Type Relation to Patient Date of Phone Billing Address Personal/Family Father [address] [place] [id number] [facility] PUBLIC DIRECT
--- OUTSIDE RECORDS SUMMARY | 2025-06-02 18:33 | XMS_ITS | Encounter Summary ---
Author Organization [facility] Address [address] [place] [address] Phone Care Team Providers Care Battery Assembler Name Role Phone Meenakshi Harris MD Primary Care Provider Unavailabl e Encounter Details Date Type Department Care Team (Late st Contact Info) Description 06/02/2014 Documentation [facility] [place] [address] [place] [address] Family Medicine, Physician [address] [place] [address] Social History Tobacco Use Types Packs/Day Years [...] on filedocumented in this encounter Care Teams Battery Assembler Relationship Specialty Start Date End Date Meenakshi Harris MD PCP - General 03/07/17 01/20/23 documented as of this encounter
== END 2025-06-02 16:29 | disposition home or self-care (01) ==
LOC: HO.HMCH 16:00
PROVIDERS: PCP Physician Assistant; Visit Provider Physician Assistant
DX: Z23 Encounter for immunization (principal)

== ENCOUNTER → 2025-06-02 15:59 | Outpatient (BNVA) | payer OTHER, SELFPAY | PROVIDERS: PCP Physician Assistant; Visit Provider Physician Assistant | DX: Z00.00 Encounter for general adult medical examination without abnormal findings (principal); J45.909 Unspecified asthma, uncomplicated; D69.6 Thrombocytopenia, unspecified; F41.9 Anxiety disorder, unspecified; Z23 Encounter for immunization | CPT/HCPCS: 90471; 90656; 96127; 99395 ==

== ENCOUNTER 2025-06-22 09:17 | Outpatient (REF) | payer OTHER, SELFPAY ==
[2025-06-22 10:04] LABS: Hematocrit 38.6 % (37.0-47.0); Hemoglobin 12.5 g/dl (12.0-16.0); Mean Corpuscular HGB Conc 32.4 g/dl (31.0-35.0); Mean Corpuscular Hemoglobin 26.0 pg (27.0-33.0); Mean Corpuscular Volume 80.4 fL (80.0-98.0); NRBC Abs Auto 0.000 X10*3/uL (0.0-0.012); NRBC Pct Auto 0.0 /100WBC (0.0-0.2); Platelet Count 202 X10*3/uL (160-400); Red Blood Count 4.80 X10*6/uL (4.20-5.50); White Blood Count 7.6 X10*3/uL (4.8-10.8)
--- OUTSIDE RECORDS SUMMARY | 2025-06-22 10:16 | XMS_ITS | Encounter Summary ---
Author Organization [facility] Address [address] [place] [address] Phone Care Team Providers Care Dialysis Equipment Technician Name Role Phone Meenakshi Harris MD Primary Care Provider Unavailabl e Encounter Details Date Type Department Care Team (Late st Contact Info) Description 09/28/2012 Documentation [facility] [place] [address] [place] [address] Family Medicine, Physician [address] [place] [address] Social History Tobacco Use Types Packs/Day Years [...] on filedocumented in this encounter Care Teams Dialysis Equipment Technician Relationship Specialty Start Date End Date Meenakshi Harris MD PCP - General 03/07/17 01/20/23 documented as of this encounter
--- OUTSIDE RECORDS SUMMARY | 2025-06-22 10:16 | XMS_ITS | Encounter Summary ---
Author Organization [facility] Address [address] [place] [address] Phone Care Team Providers Care Ehs Manager Name Role Phone Meenakshi Harris MD Primary Care Provider Unavailabl e Encounter Details Date Type Department Care Team (Late st Contact Info) Description 09/29/2012 [place]ation [facility] [place] [address] [place] [address] Family Medicine, Physician [address] [place] [address] Social History Tobacco Use Types Packs/Day Years [...] on filedocumented in this encounter Care Teams Ehs Manager Relationship Specialty Start Date End Date Meenakshi Harris MD PCP - General 03/07/17 01/20/23 documented as of this encounter
--- OUTSIDE RECORDS SUMMARY | 2025-06-22 10:16 | XMS_ITS | Encounter Summary ---
Author Organization [facility] Address [address] [place] [address] Phone Care Team Providers Care Sustainability Coach Name Role Phone Meenakshi Harris MD Primary Care Provider Unavailabl e Encounter Details Date Type Department Care Team (Late st Contact Info) Description 03/13/2017 Conversion Encounter [address] [address] Social History Tobacco Use Types Packs/Day Years [...] on filedocumented in this encounter Care Teams Sustainability Coach Relationship Specialty Start Date End Date Meenakshi Harris MD PCP - General 03/07/17 01/20/23 documented as of this encounter
--- OUTSIDE RECORDS SUMMARY | 2025-06-22 10:16 | XMS_ITS | Encounter Summary ---
Author Organization [facility] Address [address] [place] [address] Phone Care Team Providers Care Local Superintendent Name Role Phone Meenakshi Harris MD Primary Care Provider Unavailabl e Encounter Details Date Type Department Care Team (Late st Contact Info) Description 07/13/2013 Documentation [facility] [place] Family [place] [address] [place] [address] Family Medicine, Physician [address] [place] [address] Social History Tobacco Use Types Packs/Day Years [...] on filedocumented in this encounter Care Teams Local Superintendent Relationship Specialty Start Date End Date Meenakshi Harris MD PCP - General 03/07/17 01/20/23 documented as of this encounter
--- OUTSIDE RECORDS SUMMARY | 2025-06-22 10:17 | XMS_ITS | Encounter Summary ---
Author Organization [facility] Address [address] [place] [address] Phone Care Team Providers Care Pediatric Hospitalist Name Role Phone Meenakshi Harris MD Primary Care Provider Unavailabl e Encounter Details Date Type Department Care Team (Late st Contact Info) Description 09/13/2014 Documentation [facility] [place] Family Medicine [facility] [place] [address] Family Medicine, Physician [facility] [place] [address] Social History Tobacco Use Types Packs/Day Years [...] on filedocumented in this encounter Care Teams Pediatric Hospitalist Relationship Specialty Start Date End Date Meenakshi Harris MD PCP - General 03/07/17 01/20/23 documented as of this encounter
--- OUTSIDE RECORDS SUMMARY | 2025-06-22 10:17 | XMS_ITS | Encounter Summary ---
Author Organization [facility] Address [address] [place] [address] Phone Care Team Providers Care Change Control Coordinator Name Role Phone Meenakshi Harris MD Primary Care Provider Unavailabl e Encounter Details Date Type Department Care Team (Late st Contact Info) Description 03/30/2015 Documentation [facility] [place] Family Medicine [facility] [place] [address] Family Medicine, Physician [facility] [place] [address] Social History Tobacco Use Types Packs/Day Years [...] on filedocumented in this encounter Care Teams Change Control Coordinator Relationship Specialty Start Date End Date Meenakshi Harris MD PCP - General 03/07/17 01/20/23 documented as of this encounter
--- OUTSIDE RECORDS SUMMARY | 2025-06-22 10:17 | XMS_ITS | Encounter Summary ---
Author Organization [facility] Address [address] [place] [address] Phone Care Team Providers Care Frontend Engineer Name Role Phone Meenakshi Harris MD Primary Care Provider Unavailabl e Encounter Details Date Type Department Care Team (Late st Contact Info) Description 09/30/2012 Documentation [facility] [place] [address] [place] [address] Family Medicine, Physician [address] [place] [address] Social History Tobacco Use Types Packs/Day Years [...] on filedocumented in this encounter Care Teams Frontend Engineer Relationship Specialty Start Date End Date Meenakshi Harris MD PCP - General 03/07/17 01/20/23 documented as of this encounter
--- OUTSIDE RECORDS SUMMARY | 2025-06-22 10:17 | XMS_ITS | Encounter Summary ---
Author Organization [facility] Address [address] [place] [address] Phone Care Team Providers Care Water Chaser Name Role Phone Meenakshi Harris MD Primary Care Provider Unavailabl e Encounter Details Date Type Department Care Team (Late st Contact Info) Description 04/29/2016 Documentation [facility] [place] [address] [place] [address] Family Medicine, Physician [address] [place] [address] Social History Tobacco Use Types Packs/Day Years [...] on filedocumented in this encounter Care Teams Water Chaser Relationship Specialty Start Date End Date Meenakshi Harris MD PCP - General 03/07/17 01/20/23 documented as of this encounter
--- OUTSIDE RECORDS SUMMARY | 2025-06-22 10:17 | XMS_ITS | Encounter Summary ---
Author Organization [facility] Address [address] [place] [address] Phone Care Team Providers Care Leaf Sticker Name Role Phone Meenakshi Harris MD Primary Care Provider Unavailabl e Encounter Details Date Type Department Care Team (Late st Contact Info) Description 09/21/2013 Documentation [facility] [place] Family Medicine [address] [place] [address] Family Medicine, Physician [address] [place] [address] Social History Tobacco Use Types Packs/Day Years [...] on filedocumented in this encounter Care Teams Leaf Sticker Relationship Specialty Start Date End Date Meenakshi Harris MD PCP - General 03/07/17 01/20/23 documented as of this encounter
--- OUTSIDE RECORDS SUMMARY | 2025-06-22 10:17 | XMS_ITS | Encounter Summary ---
Author Organization [facility] Address [address] [place] [address] Phone Care Team Providers Care Records Supervisor Name Role Phone Meenakshi Harris MD Primary Care Provider Unavailabl e Encounter Details Date Type Department Care Team (Late st Contact Info) Description 07/14/2013 Documentation [facility] [place] Family Medicine [address] [place] [address] Family Medicine, Physician [address] [place] [address] Social History Tobacco Use Types Packs/Day Years [...] on filedocumented in this encounter Care Teams Records Supervisor Relationship Specialty Start Date End Date Meenakshi Harris MD PCP - General 03/07/17 01/20/23 documented as of this encounter
--- OUTSIDE RECORDS SUMMARY | 2025-06-22 10:17 | XMS_ITS | Encounter Summary ---
Author Organization [facility] Address [address] [place] [address] Phone Care Team Providers Care Plastics Heat Welder Name Role Phone Meenakshi Harris MD Primary Care Provider Unavailabl e Encounter Details Date Type Department Care Team (Late st Contact Info) Description 07/10/2011 Documentation [facility] [place] Family Medicine [address] [place] [address] Family Medicine, Physician [address] [place] [address] Social History Tobacco Use Types Packs/Day Years [...] on filedocumented in this encounter Care Teams Plastics Heat Welder Relationship Specialty Start Date End Date Meenakshi Harris MD PCP - General 03/07/17 01/20/23 documented as of this encounter
--- OUTSIDE RECORDS SUMMARY | 2025-06-22 10:17 | XMS_ITS | Clinical Summary ---
Author Organization [facility] Address [address] [place] [address] Phone Care Team Providers Care Ropeman Name Role Phone Unavailable Primary Care Provider [...] count in 2015 as well. Seen at [facility] (see letter from Feb 2018); likely immune; sending Hep C. Defer to PCP re HIV, SLE, etc. 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 [facility], consider cxr in [...] Thyroid disease, No family history of *Sudden /[place] under 55, No family history of *Heart [...] complete this topic Procedures * Due to [place] [employer] law, this organization might not be sharing sensitive test results. Procedure Name Priority Date/Time Associated Diagnosis Comments CHLAMYDIA AND GONORRHEA, AMPLIFIED Routine 02/27/2018 1:35 PM EDT Well adult exam from Last 3 Months or Most Recently Relevant to Health Maintenance Results * Due to [place] [employer] law, this organization might not be sharing sensitive test results. * Chlamydia and Gonorrhoea, Amplified (02/27/2018 1:35 PM EDT) Chlamydia Trachomatis, DNA Probe NEGATIVE (NEG) [facility] Comment: No Chlamydia Trachomatis RNA detected in this patient's sample (REFERENCE RANGE/NORMAL VALUE: NOT DETECTED) Note: This test uses bicycle assembler- mediated amplification method to detect rRNA from C. Trachomatis URINE GC AMP PROBE NEGATIVE (NEG) [facility] Comment: No Neisseria Gonorrhoeae RNA detected in this patient's sample (REFERENCE RANGE/NORMAL VALUE: NOT DETECTED) NOTE: This test uses bicycle assembler-mediated amplification method to detect rRNA from N.Gonorrhoeae. [...] without risk of sexual abuse. Consult the [facility] if needed. Contact phone number . Therapeutic failure or success cannot be determined with the Aptima Combo2 assay since nucleic acid may persist following appropriate antimicrobial therapy. The Centers for Disease Control and Prevention (CDC) recommends confirmatory retesting using culture or a different nucleic acid amplification test when positive results occur, if indicated. Testing performed or reported by [facility], a Service of [facility], [address] [place] [address] CLIA [id number] Prachi Nevarez MD, PhD, Aquatics Assistant Department Head Urine 02/27/2018 1:35 PM EDT 02/27/2018 11:50 PM EDT us Meenakshi Harris MD LAB MICROBIOLOGY - GENERAL ORDER ZANE Final Result [facility] from Last 3 Months or Most Recently Relevant to Health Maintenance Insurance [facility] PUBLIC DIRECT
--- OUTSIDE RECORDS SUMMARY | 2025-06-22 10:17 | XMS_ITS | Encounter Summary ---
Author Organization [facility] Address [address] [place] [address] Phone Care Team Providers Care Clinical Dietitian Name Role Phone Meenakshi Harris MD Primary Care Provider Unavailabl e Encounter Details Date Type Department Care Team (Late st Contact Info) Description 05/22/2012 Documentation [facility] [place] Family Medicine [address] [place] [address] Family Medicine, Physician [address] [place] [address] Social History Tobacco Use Types Packs/Day Years [...] on filedocumented in this encounter Care Teams Clinical Dietitian Relationship Specialty Start Date End Date Meenakshi Harris MD PCP - General 03/07/17 01/20/23 documented as of this encounter
--- OUTSIDE RECORDS SUMMARY | 2025-06-22 10:17 | XMS_ITS | Encounter Summary ---
Author Organization [facility] Address [address] [place] [address] Phone Care Team Providers Care Restaurant Cook Name Role Phone Meenakshi Harris MD Primary Care Provider Unavailabl e Encounter Details Date Type Department Care Team (Late st Contact Info) Description 06/02/2014 Documentation [facility] [place] [address] [place] [address] Family Medicine, Physician [address] [place] [address] Social History Tobacco Use Types Packs/Day Years [...] on filedocumented in this encounter Care Teams Restaurant Cook Relationship Specialty Start Date End Date Meenakshi Harris MD PCP - General 03/07/17 01/20/23 documented as of this encounter
--- OUTSIDE RECORDS SUMMARY | 2025-06-22 10:17 | XMS_ITS | Encounter Summary ---
Author Organization [facility] Address [address] [place] [address] Phone Care Team Providers Care Labor And Delivery Nurse Name Role Phone Meenakshi Harris MD Primary Care Provider Unavailabl e Encounter Details Date Type Department Care Team (Late st Contact Info) Description 03/11/2016 Documentation [facility] [place] [facility] [place] [address] Family Medicine, Physician [address] [place] [address] Social History Tobacco Use Types Packs/Day Years [...] on filedocumented in this encounter Care Teams Labor And Delivery Nurse Relationship Specialty Start Date End Date Meenakshi Harris MD PCP - General 03/07/17 01/20/23 documented as of this encounter
[2025-06-22 10:59] LABS: Alanine Aminotransferase 76 U/L (0-31); Albumin Level 4.3 g/dL (3.5-5.0); Alkaline Phosphatase 109 U/L (39-117); Anion Gap 12 (12-20); Aspartate Amino Transferase 36 U/L (5-31); Blood Urea Nitrogen 18 mg/dL (9-16); Calcium 9.2 mg/dL (8.4-10.2); Carbon Dioxide 27 mmol/L (22-29); Chloride 105 mmol/L (96-108); Estimated Glomerular Filt Rate > 60; Potassium 4.9 mmol/L (3.3-5.1); Sodium 139 mmol/L (135-145); Total Protein 6.7 g/dL (6.5-8.0)
== END 2025-06-22 09:18 | disposition home or self-care (01) ==
LOC: HO.LAB 09:17
PROVIDERS: PCP Physician Assistant; Visit Provider Physician Assistant
DX: Z13.1 Encounter for screening for diabetes mellitus (principal); D69.6 Thrombocytopenia, unspecified
CPT/HCPCS: 36415; 80053; 85027

== ENCOUNTER 2025-06-28 13:56 | Outpatient (REF) | payer OTHER, SELFPAY ==
[2025-06-28 15:04] LABS: Alanine Aminotransferase 74 U/L (0-31); Albumin Level 4.3 g/dL (3.5-5.0); Alkaline Phosphatase 112 U/L (39-117); Aspartate Amino Transferase 39 U/L (5-31); Total Protein 6.8 g/dL (6.5-8.0)
--- OUTSIDE RECORDS SUMMARY | 2025-06-28 15:58 | XMS_ITS | Encounter Summary ---
Author Organization [facility] Address [address] [place] [address] Phone Care Team Providers Care Summer Child Caregiver Name Role Phone Meenakshi Harris MD Primary Care Provider Unavailabl e Encounter Details Date Type Department Care Team (Late st Contact Info) Description 03/13/2017 Conversion Encounter [address] [address] Social History Tobacco Use Types Packs/Day Years [...] on filedocumented in this encounter Care Teams Summer Child Caregiver Relationship Specialty Start Date End Date Meenakshi Harris MD PCP - General 03/07/17 01/20/23 documented as of this encounter
--- OUTSIDE RECORDS SUMMARY | 2025-06-28 15:58 | XMS_ITS | Encounter Summary ---
Author Organization [facility] Address [address] [place] [address] Phone Care Team Providers Care Skimmer Reverberatory Name Role Phone Meenakshi Harris MD Primary Care Provider Unavailabl e Encounter Details Date Type Department Care Team (Late st Contact Info) Description 07/13/2013 Documentation [facility] [place] [address] [place] [address] Family Medicine, Physician [address] [place] [address] Social History Tobacco Use Types Packs/Day Years [...] on filedocumented in this encounter Care Teams Skimmer Reverberatory Relationship Specialty Start Date End Date Meenakshi Harris MD PCP - General 03/07/17 01/20/23 documented as of this encounter
--- OUTSIDE RECORDS SUMMARY | 2025-06-28 15:59 | XMS_ITS | Encounter Summary ---
Author Organization [facility] Address [address] [place] [address] Phone Care Team Providers Care Wine And Spirits Clerk Name Role Phone Meenakshi Harris MD Primary Care Provider Unavailabl e Encounter Details Date Type Department Care Team (Late st Contact Info) Description 04/29/2016 Documentation [facility] [place] [address] [place] [address] Family Medicine, Physician [address] [place] [address] Social History Tobacco Use Types Packs/Day Years [...] on filedocumented in this encounter Care Teams Wine And Spirits Clerk Relationship Specialty Start Date End Date Meenakshi Harris MD PCP - General 03/07/17 01/20/23 documented as of this encounter
--- OUTSIDE RECORDS SUMMARY | 2025-06-28 15:59 | XMS_ITS | Encounter Summary ---
Author Organization [facility] Address [address] [place] [address] Phone Care Team Providers Care Photoengraver Apprentice Name Role Phone Meenakshi Harris MD Primary Care Provider Unavailabl e Encounter Details Date Type Department Care Team (Late st Contact Info) Description 09/21/[address] [facility] [place] Family Medicine [address] [place] [address] Family Medicine, Physician [address] [place] [address] Social History Tobacco Use Types Packs/Day Years [...] on filedocumented in this encounter Care Teams Photoengraver Apprentice Relationship Specialty Start Date End Date Meenakshi Harris MD PCP - General 03/07/17 01/20/23 documented as of this encounter
--- OUTSIDE RECORDS SUMMARY | 2025-06-28 15:59 | XMS_ITS | Encounter Summary ---
Author Organization [facility] Address [address] [place] [address] Phone Care Team Providers Care Financial Center Manager Name Role Phone Meenakshi Harris MD Primary Care Provider Unavailabl e Encounter Details Date Type Department Care Team (Late st Contact Info) Description 09/29/2012 Documentation [facility] [place] Family Medicine [address] [place] [address] Family Medicine, Physician [address] [place] [address] Social History Tobacco Use Types Packs/Day Years [...] on filedocumented in this encounter Care Teams Financial Center Manager Relationship Specialty Start Date End Date Meenakshi Harris MD PCP - General 03/07/17 01/20/23 documented as of this encounter
--- OUTSIDE RECORDS SUMMARY | 2025-06-28 15:59 | XMS_ITS | Encounter Summary ---
Author Organization [facility] Address [address] [place] [address] Phone Care Team Providers Care Director Visual Name Role Phone Meenakshi Harris MD Primary Care Provider Unavailabl e Encounter Details Date Type Department Care Team (Late st Contact Info) Description 06/02/2014 Documentation [facility] [place] [address] [place] [address] Family Medicine, Physician [address] [place] [address] Social History Tobacco Use Types Packs/Day Years [...] on filedocumented in this encounter Care Teams Director Visual Relationship Specialty Start Date End Date Meenakshi Harris MD PCP - General 03/07/17 01/20/23 documented as of this encounter
--- OUTSIDE RECORDS SUMMARY | 2025-06-28 15:59 | XMS_ITS | Encounter Summary ---
Author Organization [facility] Address [address] [place] [address] Phone Care Team Providers Care Vessel Master Name Role Phone Meenakshi Harris MD Primary Care Provider Unavailabl e Encounter Details Date Type Department Care Team (Late st Contact Info) Description 03/11/2016 Documentation [facility] [place] [facility] [place] [address] Family Medicine, Physician [address] [place] [address] Social History Tobacco Use Types Packs/Day Years [...] on filedocumented in this encounter Care Teams Vessel Master Relationship Specialty Start Date End Date Meenakshi Harris MD PCP - General 03/07/17 01/20/23 documented as of this encounter
--- OUTSIDE RECORDS SUMMARY | 2025-06-28 15:59 | XMS_ITS | Encounter Summary ---
Author Organization [facility] Address [address] [place] [address] Phone Care Team Providers Care Wrapper Off Name Role Phone Meenakshi Harris MD Primary Care Provider Unavailabl e Encounter Details Date Type Department Care Team (Late st Contact Info) Description 05/22/2012 Documentation [facility] [place] Family Medicine [address] [place] [address] Family Medicine, Physician [address] [place] [address] Social History Tobacco Use Types Packs/Day Years [...] on filedocumented in this encounter Care Teams Wrapper Off Relationship Specialty Start Date End Date Meenakshi Harris MD PCP - General 03/07/17 01/20/23 documented as of this encounter
--- OUTSIDE RECORDS SUMMARY | 2025-06-28 15:59 | XMS_ITS | Encounter Summary ---
Author Organization [facility] Address [address] [place] [address] Phone Care Team Providers Care Rigger Helper Name Role Phone Meenakshi Harris MD Primary Care Provider Unavailabl e Encounter Details Date Type Department Care Team (Late st Contact Info) Description 09/28/2012 Documentation [facility] [place] Family Medicine [address] [place] [address] Family Medicine, Physician [address] [place] [address] Social History Tobacco Use Types Packs/Day Years [...] on filedocumented in this encounter Care Teams Rigger Helper Relationship Specialty Start Date End Date Meenakshi Harris MD PCP - General 03/07/17 01/20/23 documented as of this encounter
--- OUTSIDE RECORDS SUMMARY | 2025-06-28 15:59 | XMS_ITS | Encounter Summary ---
Author Organization [facility] Address [address] [place] [address] Phone Care Team Providers Care Forging Machine Operator Name Role Phone Meenakshi Harris MD Primary Care Provider Unavailabl e Encounter Details Date Type Department Care Team (Late st Contact Info) Description 03/30/2015 [place] [facility] [place] [facility] [place] [address] Family Medicine, Physician [facility] [place] [address] Social History Tobacco Use Types Packs/Day Years [...] on filedocumented in this encounter Care Teams Forging Machine Operator Relationship Specialty Start Date End Date Meenakshi Harris MD PCP - General 03/07/17 01/20/23 documented as of this encounter
--- OUTSIDE RECORDS SUMMARY | 2025-06-28 15:59 | XMS_ITS | Encounter Summary ---
Author Organization [facility] Address [address] [place] [address] Phone Care Team Providers Care Threading Machine Setter Name Role Phone Meenakshi Harris MD Primary Care Provider Unavailabl e Encounter Details Date Type Department Care Team (Late st Contact Info) Description 09/30/2012 [place] [facility] [place] [address] [place] [address] Family Medicine, Physician [address] [place] [address] Social History Tobacco Use Types Packs/Day Years [...] on filedocumented in this encounter Care Teams Threading Machine Setter Relationship Specialty Start Date End Date Meenakshi Harris MD PCP - General 03/07/17 01/20/23 documented as of this encounter
--- OUTSIDE RECORDS SUMMARY | 2025-06-28 15:59 | XMS_ITS | Clinical Summary ---
Author Organization [facility] Address [address] [place] [address] Phone Care Team Providers Care Raw Stock Dyeing Machine Tender Name Role Phone Unavailable Primary Care Provider [...] count in 2015 as well. Seen at [facility] (see letter from Feb 2018); likely immune; sending Hep C. Defer to PCP re HIV, SLE, etc. 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 Return to [facility] in 1 mo, consider cxr in [...] Thyroid disease, No family history of *Sudden /[place] under 55, No family history of *Heart [...] complete this topic Procedures * Due to [place] [employer] law, this organization might not be sharing sensitive test results. Procedure Name Priority Date/Time Associated Diagnosis Comments CHLAMYDIA AND GONORRHEA, AMPLIFIED Routine 02/27/2018 1:35 PM EDT Well adult exam from Last 3 Months or Most Recently Relevant to Health Maintenance Results * Due to [place] [employer] law, this organization might not be sharing sensitive test results. * Chlamydia and Gonorrhoea, Amplified (02/27/2018 1:35 PM EDT) Chlamydia Trachomatis, DNA Probe NEGATIVE (NEG) [facility] Comment: No Chlamydia Trachomatis RNA detected in this patient's sample (REFERENCE RANGE/NORMAL VALUE: NOT DETECTED) Note: This test uses chronometer repairer- mediated amplification method to detect rRNA from C. Trachomatis URINE GC AMP PROBE NEGATIVE (NEG) [facility] Comment: No Neisseria Gonorrhoeae RNA detected in this patient's sample (REFERENCE RANGE/NORMAL VALUE: NOT DETECTED) NOTE: This test uses chronometer repairer-mediated amplification method to detect rRNA from N.Gonorrhoeae. [...] without risk of sexual abuse. Consult the [facility] if needed. Contact phone number . Therapeutic failure or success cannot be determined with the Aptima Combo2 assay since nucleic acid may persist following appropriate antimicrobial therapy. The Centers for Disease Control and Prevention (CDC) recommends confirmatory retesting using culture or a different nucleic acid amplification test when positive results occur, if indicated. Testing performed or reported by [facility], a Service of [facility], [address] [place] [address] CLIA [id number] Prachi Nevarez MD, PhD, Director Customer Urine 02/27/2018 1:35 PM EDT 02/27/2018 11:50 PM EDT us Meenakshi Harris MD LAB MICROBIOLOGY - GENERAL ORDER ZANE Final Result [facility] from Last 3 Months or Most Recently Relevant to Health Maintenance Insurance [facility] PUBLIC DIRECT
--- OUTSIDE RECORDS SUMMARY | 2025-06-28 15:59 | XMS_ITS | Encounter Summary ---
Author Organization [facility] Address [address] [place] [address] Phone Care Team Providers Care Divinity Teacher Name Role Phone Meenakshi Harris MD Primary Care Provider Unavailabl e Encounter Details Date Type Department Care Team (Late st Contact Info) Description 07/10/2011 Documentation [facility] [place] [address] [place] [address] Family Medicine, Physician [address] [place] [address] Social History Tobacco Use Types Packs/Day Years [...] on filedocumented in this encounter Care Teams Divinity Teacher Relationship Specialty Start Date End Date Meenakshi Harris MD PCP - General 03/07/17 01/20/23 documented as of this encounter
--- OUTSIDE RECORDS SUMMARY | 2025-06-28 15:59 | XMS_ITS | Encounter Summary ---
Author Organization [facility] Address [address] [place] [address] Phone Care Team Providers Care Boss Dyer Name Role Phone Meenakshi Harris MD Primary Care Provider Unavailabl e Encounter Details Date Type Department Care Team (Late st Contact Info) Description 09/13/2014 [place] [facility] [place] [facility] [address] Family Medicine, Physician [facility] [place] [address] Social History Tobacco Use Types Packs/Day Years [...] on filedocumented in this encounter Care Teams Boss Dyer Relationship Specialty Start Date End Date Meenakshi Harris MD PCP - General 03/07/17 01/20/23 documented as of this encounter
--- OUTSIDE RECORDS SUMMARY | 2025-06-28 15:59 | XMS_ITS | Encounter Summary ---
Author Organization [facility] Address [address] [place] [phone] Phone Care Team Providers Care Auto Detailer Name Role Phone Meenakshi Harris MD Primary Care Provider Unavailabl e Encounter Details Date Type Department Care Team (Late st Contact Info) Description 07/14/2013 Documentation [facility] [place] Family Medicine [address] [place] [address] Family Medicine, Physician [address] [place] [address] Social History Tobacco Use Types Packs/Day Years [...] on filedocumented in this encounter Care Teams Auto Detailer Relationship Specialty Start Date End Date Meenakshi Harris MD PCP - General 03/07/17 01/20/23 documented as of this encounter
== END 2025-06-28 13:57 | disposition home or self-care (01) ==
LOC: HO.LAB 13:56
PROVIDERS: PCP Physician Assistant; Visit Provider Physician Assistant
DX: R74.8 Abnormal levels of other serum enzymes (principal)
CPT/HCPCS: 36415; 80076